=== PATIENT | female | born 1995 | race Two or more races ===

== ENCOUNTER 2016-06-05 19:41 | Outpatient (CLI) | payer MEDICAID ==
--- NOTE | 2016-06-05 20:01 | L&D Flow Sheet ---
LD Flowsheet Datetime Report Generated by CPN: 06/05/2016 20:00 Datetime: 06/05/2016 19:59 Vital Signs NBP Sys/Criselda/Mean (mmHg): 113 (QS system process) : 62 (QS system process) : 80 (QS system process) Pulse: 116 (QS system process)
[2016-06-05 20:22] LABS: APPEARANCE,URINE SLIGHTLY-CLOUDY; BILIRUBIN,URINE NEGATIVE (NEGATIVE); GLUCOSE, URINE NEGATIVE (NEGATIVE); KETONES,URINE NEGATIVE (NEGATIVE); LEUKOCYTE ESTERASE,URINE LARGE (NEGATIVE); NITRITE,URINE NEGATIVE (NEGATIVE); PROTEIN,URINE NEGATIVE (NEGATIVE); URINE SPECIFIC GRAVITY 1.009; UROBILINOGEN,URINE NEGATIVE mg/dL (<2.0)
[2016-06-05 20:33] LABS: URINE BARBITURATES SCREEN NEGATIVE; URINE METHADONE SCREEN NEGATIVE; URINE OPIATES LOW NEGATIVE; URINE PHENCYCLIDINE SCREEN NEGATIVE
[2016-06-05] MEDS ORDERED: LIDOCAINE 1% INJ-PF (10 MG/ML) 30 ML SDV INJ ONE (20:41)
[2016-06-05] MEDS ORDERED: LIDOCAINE 1% INJ-PF (10 MG/ML) 30 ML SDV ONE (20:58)
[2016-06-05] MEDS ORDERED: CEFTRIAXONE INJ 1000 MG VIAL ONE (20:58)
[2016-06-05] MEDS ORDERED: CEFTRIAXONE INJ 1000 MG VIAL IM ONE (21:00)
[2016-06-05] MEDS ORDERED: LIDOCAINE HCL 1% INJ (FOR 1 GM VIAL) INJ ONE (21:00)
[2016-06-05 21:34] LABS: ABSOLUTE LYMPHOCYTES (AUTO) 0.8 10^3/uL (0.5-4.7); ABSOLUTE MONOCYTES (AUTO) 0.8 10^3/uL (0.1-1.4); ABSOLUTE NEUT (AUTO) 10.2 10^3/uL (1.7-8.2); BASOPHILS % (AUTO) 0.1 % (0-2); EOSINOPHILS % (AUTO) 0.1 % (0-6); HEMATOCRIT 31.8 % (36.0-47.0); HEMOGLOBIN 10.7 g/dL (12.0-15.5); HGB HCT DIFFERENCE 0.3; LYMPHOCYTES % (AUTO) 7.1 % (13-45); MEAN CORPUSCULAR HEMOGLOBIN 24.7 pg (27.0-33.4); MEAN CORPUSCULAR HGB CONC 33.7 g/dL (32.0-36.0); MEAN CORPUSCULAR VOLUME 73 fl (80-97); MONOCYTES % (AUTO) 6.5 % (3-13); RED BLOOD COUNT 4.34 10^6/uL (3.72-5.28); RED CELL DISTRIBUTION WIDTH 20.4 % (11.5-14.0); SEGMENTED NEUTROPHILS % (AUTO) 86.2 % (42-78); WHITE BLOOD COUNT 11.8 10^3/uL (4.0-10.5)
[2016-06-05 21:52] LABS: ALANINE AMINOTRANSFERASE 38 U/L (9-52); ALBUMIN 3.1 g/dL (3.5-5.0); ALKALINE PHOSPHATASE 170 U/L (38-126); ANION GAP 8 (5-19); ASPARTATE AMINO TRANSFERASE 21 U/L (14-36); BILIRUBIN,DIRECT 0.3 mg/dL (0.0-0.4); BILIRUBIN,TOTAL 0.8 mg/dL (0.2-1.3); BLOOD UREA NITROGEN 5 mg/dL (7-20); CARBON DIOXIDE 19 mmol/L (22-30); CHLORIDE 108 mmol/L (98-107); CREATININE RESULT 0.59 mg/dL (0.52-1.25); GLUCOSE 81 mg/dL (75-110); POTASSIUM 3.5 mmol/L (3.6-5.0); SODIUM 135.4 mmol/L (137-145); TOTAL PROTEIN 5.9 g/dL (6.3-8.2)
[2016-06-05] MEDS ORDERED: HYDROXYZINE PAMOATE 50 MG CAPSULE ONE (22:03)
[2016-06-05] MEDS ORDERED: ACETAMINOPHEN 325 MG TABLET ONE (22:04)
[2016-06-05] MEDS ORDERED: ACETAMINOPHEN 325 MG TABLET PO ONE (22:15)
[2016-06-05] MEDS ORDERED: HYDROXYZINE PAMOATE 50 MG CAPSULE PO ONE (22:15)
--- NOTE | 2016-06-05 22:50 | L&D Discharge Summary ---
OB Discharge Summary Datetime Report Generated by CPN: 06/05/2016 22:45 DISCHARGE DIAGNOSIS Diagnosis/Symptoms: False Labor; UTI Gestation: 33.2 Number of Babies in Womb: 1 Parity: 0 DIET/ACTIVITY/RESTRICTIONS Diet: Regular Activity: Normal Activity TEACHING/INSTRUCTIONS/REFERRALS Instructions Given To: Patient and family Instructions Understood: Patient Verbalized Understanding; Support Person Verbalized Understanding Referrals: None Educational Materials- Other: Kick Counts OTC Medications DISCHARGE INFORMATION Discharged AMA: No Discharge Date/Time: 06/05/2016 22:21 Discharged To: Home Discharge Provider Name: Dr. Pack Accompanied By: Family Discharge Method: Wheelchair Condition: Stable FOLLOW UP INFORMATION Follow Up With: [facility] Follow Up On: As Scheduled Follow Up Phone Number: [employer] - Comments: Discussed kick counts, OTC medications, and signs and symptoms of when to return to office or hospital with patient and family. All, patient and family, verbalized understanding. Patient discharged home due to false labor via wheelchair in stable condition. GENERAL INSTR-CALL PROVIDER IF: Contractions: Contractions or cramps become more frequent than 8 in one hour or 4 in 20 minutes; Regular painful contractions every 5 minutes or less for one hour. Time your contractions from the beginning of one to the beginning of the next Pressure: Pressure in your vagina or lower abdomen that may feel like the baby is pushing down Period Like Cramps: Period-like cramps or low dull backache that may come and go Cramps/Diarrhea: Abdominal cramps that may be accompanied by diarrhea Gush of Fluid/Blood: Gush of fluid or blood from your vagina (it is normal to have spotting after vaginal exam or intercourse) Vaginal Discharge: Change in the type or amount of vaginal discharge Decreased Movement: Your baby is not moving as much as usual- 4 movements in 1 hour after drinking and resting on side Temperature: Temperature greater than 100.0(F) orally
--- NOTE | 2016-06-05 22:50 | L&D Current Admission ---
Current Admit Datetime Report Generated by CPN: 06/05/2016 22:45 ADMISSION INFORMATION Chief Complaint: Flank Pain (06/05/2016 20:05:Mindy Triplett, RN)
--- NOTE | 2016-06-05 22:50 | Antepartum Discharge Summary ---
Antepartum DC Datetime Report Generated by CPN: 06/05/2016 22:45 DIET/ACTIVITY/RESTRICTIONS Diet: Regular (06/05/2016 22:22:Mindy , RN) Activity: Normal Activity (06/05/2016 22:22:Mindy Field, RN) TEACHING/INSTRUCTIONS/REFERRALS Instructions Given To: Patient and family (06/05/2016 22:22:Mindy , RN) Instructions Understood: Patient Verbalized Understanding; Support Person Verbalized Understanding (06/05/2016 22:22:Mindy Triplett RN) Referrals: None (06/05/2016 22:22:Mindy Triplett RN) Educational Materials- Other: Kick Counts OTC Medications (06/05/2016:22:Mindy Triplett RN) DISCHARGE INFORMATION Discharged AMA: No (06/05/2016 22:22:Mindy Triplett RN) Discharge Date/Time: 06/05/2016 22:21 (06/05/2016 22:22:Mindy Triplett RN) Discharged To: Home (06/05/2016 22:22:Mindy Triplett RN) Discharge Provider Name: Dr. Pack (06/05/2016 22:22:Mindy Triplett RN) Accompanied By: Family (06/05/2016 22:22:Mindy Triplett RN) Discharge Method: Wheelchair (06/05/2016 22:22:Mindy Triplett RN) Condition: Stable (06/05/2016 22:22:Mindy Triplett RN) FOLLOW UP INFORMATION Follow Up With: [facility] (06/05/2016 22:22:Mindy Triplett RN) Follow Up On: As Scheduled (06/05/2016 22:22:Mindy Triplett RN) Follow Up Phone Number: [facility] - (06/05/2016 22:22:Mindy Triplett RN) Comments: Discussed kick counts, OTC medications, and signs and symptoms of when to return to office or hospital with patient and family. All, patient and family, verbalized understanding. Patient discharged home due to false labor via wheelchair in stable condition. (06/05/2016 22:22:Mindy Trilpett RN) GENERAL INSTR-CALL PROVIDER IF: Contractions: Contractions or cramps become more frequent than 8 in one hour or 4 in 20 minutes; Regular painful contractions every 5 minutes or less for one hour. Time your contractions from the beginning of one to the beginning of the next (06/05/2016 22:22:Mindy Triplett RN) Pressure: Pressure in your vagina or lower abdomen that may feel like the baby is pushing down (06/05/2016 22:22:Mindy Triplett RN) Period Like Cramps: Period-like cramps or low dull backache that may come and go (06/05/2016 22:22:Mindy Triplett RN) Cramps/Diarrhea: Abdominal cramps that may be accompanied by diarrhea (06/05/2016 22:22:Mindy Triplett RN) Gush of Fluid/Blood: Gush of fluid or blood from your vagina (it is normal to have spotting after vaginal exam or intercourse) (06/05/2016 22:22:Mindy Triplett RN) Vaginal Discharge: Change in the type or amount of vaginal discharge (06/05/2016 22:22:Mindy Triplett RN) Decreased Movement: Your baby is not moving as much as usual- 4 movements in 1 hour after drinking and resting on side (06/05/2016 22:22:Mindy Triplett RN) Temperature: Temperature greater than 100.0(F) orally (06/05/2016 22:22:Mindy Triplett RN) Hypertension Signs/Symptoms: Severe headache which is not relieved 30 minutes after taking Tylenol(Acetaminophen); Blurry vision or spots before your eyes; Severe heartburn or pain on the upper right side of your abdomen that is not relieved by an antacid; Increased swelling in your face, hands or feet (06/05/2016 22:22:Mindy Triplett RN) Urinary Output: Decreased urinary output or dark colored urine (06/05/2016 22:22:Mindy Triplett RN)
--- NOTE | 2016-06-05 22:50 | L&D Flow Sheet ---
LD Flowsheet Datetime Report Generated by CPN: 06/05/2016 22:45 Datetime: 06/05/2016 22:03 Patient Care Patient Care Comments: Hot pack provided (Mindy Field, RN) Patient Care Patient Care Comments: Discussed Kick counts and OTC medications with patient and family; All verbalized understanding. (Mindy Triplett, RN) Datetime: 06/05/2016 22:00 Communication Communication: RN Reviewed Strip; Provider Orders Received; Call/Page Placed to Provider (Mindy Triplett RN) Communication Comments: Asked Dr. Pack if patient could have something for pain; orders received for Vistaril 50 mg and Tylenol 650 mg PO now (Mindy Triplett RN) Datetime: 06/05/2016 21:57 Communication Communication: RN Reviewed Strip; Provider Orders Received; Call/Page Placed to Provider (Mindy Triplett, RN) Communication Comments: Informed Dr. Ramone of results from Cervical Length, U/S of Appendix, CBC and CMP; orders received to discharge patient home. ([place] Triplett, RN) Datetime: 06/05/2016 21:52 Vital Signs NBP Sys/Criselda/Mean (mmHg): 178 (QS system process) : 86 (QS system process) : 110 (QS system process) Pulse: 126 (QS system process) Datetime: 06/05/2016 21:49 Patient Care Patient Care Comments: Warm blankets provided; patient shaking (Mindy Field, RN) Datetime: 06/05/2016 21:35 Monitor Interventions for FHR: Ultrasound Adjusted (Mindy Field, RN) Comments: RN at bedside adjusting ultrasound (Mindy Field, RN) Datetime: 06/05/2016 21:30 Uterine Activity Monitor Mode: External; Palpation (Mindy Field, RN) Resting Tone (Palpate): Relaxed (Mindy Field, RN) Contraction Comments: No contractions noted on strip (Mindy Field, RN) Assessment A Monitor Mode: External US (Mindy Field, RN) FHR Baseline Rate : 145 (Mindy Field, RN) Variability: Moderate 6-25 bpm (Mindy Field, RN) Accelerations: None (Mindy Field, RN) Decelerations: None (Mindy Field, RN) Datetime: 06/05/2016 21:20 Vital Signs NBP Sys/Criselda/Mean (mmHg): 104 (QS system process) : 57 (QS system process) : 71 (QS system process) Pulse: 105 (QS system process) Datetime: 06/05/2016 21:10 Medications Medication Comments: Rocephin 1000 mg IM with Lidocaine 2.1 mL (Mindy Field, RN) Patient Care Patient Care Comments: Patient returned to floor from Ultra sound (Mindy Field, RN) Datetime: 06/05/2016 20:44 Uterine Activity Monitor Mode: External; Palpation (Mindy Field, RN) Resting Tone (Palpate): Relaxed (Mindy Field, RN) Contraction Comments: No contractions noted on strip (Mindy Field, RN) Assessment A Monitor Mode: External US (Mindy Field, RN) FHR Baseline Rate : 150 (Mindy Field, RN) Variability: Moderate 6-25 bpm (Mindy Field, RN) Accelerations: 10X10 (Mindy Field, RN) Decelerations: Variable (Mindy Field, RN) Patient Care Patient Care Comments: Patient off monitor and floor to ultra sound (Mindy Field, RN) Datetime: 06/05/2016 20:34 Communication Communication: RN Reviewed Strip; Provider Orders Received; Call/Page Placed to Provider (Mindy Triplett RN) Communication Comments: Informed Dr. Pack of patient's complaint, history, urine results, and FHR/Contractions; orders received for U/S for Cervical Length and Appendix, CBC, CMP and Rocephin 1 g IM (Mindy Tripltet, PASCUAL) Datetime: 06/05/2016 20:30 Vital Signs NBP Sys/Criselda/Mean (mmHg): 121 (QS system process) : 67 (QS system process) : 88 (QS system process) Pulse: 127 (QS system process) Uterine Activity Monitor Mode: External; Palpation (Mindy Field, RN) Frequency (min): 2 (Mindy Field, RN) Quality: Mild (Mindy Field, RN) Duration (sec): 40-50 (Mindy Field, RN) Resting Tone (Palpate): Relaxed (Mindy Field, RN) Assessment A Monitor Mode: External US (Mindy Field, RN) FHR Baseline Rate : 150 (Mindy , RN) Variability: Moderate 6-25 bpm (Mindy , RN) Accelerations: 15X15 (Mindy Triplett, RN) Decelerations: Variable [facility] Datetime: 06/05/2016 20:05 Pain Pain Scale: 4 (Mindy Triplett, PASCUAL) Pain Presence: Constant (Mindy Triplett RN) Pain Type: Sharp; Stabbing; Pressure; Ache (Mindy Triplett, RN) Pain Location: Right Flank (Mindy Triplett, RN) Pain Goal: 0 (Mindy Triplett RN) Pain Relief Measures: Comfort Measures (Mindy Triplett RN) Pain Coping: Talking Through Contractions; Breathing Through Contractions (Mindy Triplett RN) Pain Assessment Comments: Patient took 1/2 of 200 mg Ibuprofen at 1900 (Mindy , RN) Vaginal Exam Vaginal Bleeding: None (Mindy Field, RN) Maternal Assessment Level of Consciousness: Fully Conscious (Mindy Field, RN) DTR's/Clonus: DTRs 1+; No Clonus (Mindy Field, RN) Headache: Denies (Mindy Field, RN) Breath Sounds, Left: Clear and Equal (Mindy Field, RN) Breath Sounds, Right: Clear and Equal (Mindy Field, RN) Nausea/Vomiting: Present (Mindy Field, RN) RUQ Epigastric Pain: Denies (Mindy Field, RN) Teaching Instructional Method: Verbal; Patient Instructed; Family/Support Person Instructed; Verbalized Understanding (Mindy Field, RN) Plan of Care: Plan of Care Discussed (Mindy Triplett RN) Unit Routine: [place] to Room; Call Blanca; Bed; Visiting Policy; Waiting Areas; Security; Phone/Cell Phone Use; Unit Personnel; Handwashing; Monitoring; Safety/Fall Risk Prevention; Bathroom Privileges (Mindy Triplett RN) Datetime: 06/05/2016 19:59 Vital Signs NBP Sys/Criselda/Mean (mmHg): 113 (QS system process) : 62 (QS system process) : 80 (QS system process) Pulse: 116 (QS system process)
--- NOTE | 2016-06-05 22:50 | L&D General Admission ---
General Admit Datetime Report Generated by CPN: 06/05/2016 22:45 INFORMATION Patient Age: 20 (06/05/2016 19:41:QS system process) EDC: 07/22/2016 00:00 (06/05/2016 19:44:Crystal [place], RN) : 1 (06/05/2016 19:44:Crystal Robbie, RN) Para: 0 (06/05/2016 19:44:Crystal Robbie, RN) Baby, Number in Womb: 1 (06/05/2016 19:44:Mindy Triplett RN) CARE Primary Kitchen Work Supervisor: [facility] (06/05/2016 19:44:Mindy Triplett RN) Adequate Care: Yes (06/05/2016 19:44:Mindy Triplett RN) Height (in): 63 (06/05/2016 20:38:QS system process) ALLERGIES Medication Allergy: No (06/05/2016 19:44:Mindy Triplett RN) Medication Allergies: No Known Allergies (01/20/2015) (06/05/2016 19:41:QS system process) Latex Allergy: No Latex Allergies (06/05/2016 19:44:Mindy Triplett RN) Food Allergies: N/A (06/05/2016 19:44:Mindy Triplett RN) Environmental Allergies: N/a (06/05/2016 19:44:Mindy Triplett RN) COMMUNICATION Primary Language: Yoruba (06/05/2016 19:44:Mindy Triplett RN) Medical Tx Preferred Language: Yoruba (06/05/2016 19:44:Mindy Triplett RN) Communication Barrier(s): None (06/05/2016 19:44:Mindy Triplett RN) DEMOGRAPHICS Address: [address] [place] [id number] (06/05/2016 19:41:QS system process) Zipcode: [phone] (06/05/2016 19:41:QS system process) Home (06/05/2016 19:41:QS system process) SSN: [id number] (06/05/2016 19:41:QS system process) Next of Kin Name: MAGNOLIA BETH (06/05/2016 19:41:QS system process) Next of Kin (06/05/2016 19:41:QS system process) Next of Kin Relationship: MO (06/05/2016 19:41:QS system process) Date of : 1995 (06/05/2016 19:41:QS system process) Marital Status: Single (06/05/2016 19:41:QS system process) Sex: Female (06/05/2016 19:41:QS system process) Race: Other (06/05/2016 19:41:QS system process) Ethnicity: Non- or (06/05/2016 19:41:QS system process) Orthodoxy: None (06/05/2016 19:41:QS system process) FOB Involved: Yes (06/05/2016 19:44:Mindy Triplett RN) Father of Baby Name: Zhao Kearns (06/05/2016 19:44:Mindy Triplett RN) DRUG AND ALCOHOL USE Alcohol: No (06/05/2016 19:44:Mindy Triplett RN) Cigarettes: Never Smoker. [id number] (06/05/2016 19:44:Mindy Triplett RN) Marijuana: No (06/05/2016 19:44:Mindy Triplett RN) Cocaine: No (06/05/2016 19:44:Mindy Triplett RN) Other Illicit Drugs: No (06/05/2016 19:44:Mindy Triplett RN) VACCINE HISTORY Influenza Vaccine: No (06/05/2016 19:44:Mindy Triplett RN) Pneumococcal Vaccine: No (06/05/2016 19:44:Mindy Triplett RN) Tetanus Vaccine: No (06/05/2016 19:44:Mindy Triplett RN) Tdap Vaccine: No (06/05/2016 19:44:Mindy Triplett RN) Hepatitis B Vaccine: Yes (06/05/2016 19:44:Mindy Triplett RN) Feeding Preference: Both (06/05/2016 19:44:Mindy Triplett RN) Benefit of Breast Feed Discussed: Yes (06/05/2016 19:44:Mindy Triplett RN) Circumcision: Yes (06/05/2016 19:44:Mindy Triplett RN) Tubal Ligation: No (06/05/2016 19:44:Mindy Triplett RN) Tubal Authorization Signed: N/A (06/05/2016 19:44:Mindy Triplett RN) Consent: N/A (06/05/2016 19:44:Mindy Triplett RN) Consent Signed: N/A (06/05/2016 19:44:Mindy Triplett RN) Pain Management Plans: Epidural (06/05/2016 19:44:Mindy Triplett RN) Plans for Labor and Delivery: None (06/05/2016 19:44:Mindy Triplett RN) Support Person: Zhao Kearns (06/05/2016 19:44:Mindy Triplett RN) Support Person Relationship: Significant Other (06/05/2016 19:44:Mindy Triplett RN) Cultural/Spritual Practice: No (06/05/2016 19:44:Mindy Triplett RN) Spir/Cult Dietary Needs: No (06/05/2016 19:44:Mindy Triplett RN) LIVING SITUATION/DISCHARGE PLAN Living Arrangements: House (06/05/2016 19:44:Mindy Triplett RN) Adequate Access to:: Electric; Heat; Refrigeration; Plumbing/Running water; Phone; Transportation (06/05/2016 19:44:Mindy Triplett RN) WIC Program: Yes (06/05/2016 19:44:Mindy Triplett RN) Discharge Paper Steamer Person: Zhao Kearns (06/05/2016 19:44:Mindy Triplett RN) Person to Help after Discharge: Zhao Kearns (06/05/2016 19:44:Mindy Triplett RN) Currently Using Commun Resources: No (06/05/2016 19:44:Mindy Triplett RN) Outside Agency/Sales Promotion Director: No (06/05/2016 19:44:Mindy Triplett RN) Car Seat for Discharge: Yes (06/05/2016 19:44:Mindy Triplett RN) Adoption Requested: No (06/05/2016 19:44:Mindy Triplett RN) Pt Contact w/ Post : N/A (06/05/2016 19:44:Mindy Triplett RN) LABS Blood Type: O Positive (06/05/2016 19:44:Mindy Triplett RN) Antibody Screen: negative (06/05/2016 19:44:Mindy Triplett RN) Hemoglobin: 10.7 L (06/05/2016 21:28:QS system process) Hematocrit: 31.8 L (06/05/2016 21:28:QS system process) MCV: 73 L (06/05/2016 21:28:QS system process) Gonorrhea: Negative (06/05/2016 19:44:Mindy Triplett RN) Chlamydia: Negative (06/05/2016 19:44:Mindy Triplett RN) RPR/VDRL: Nonreactive (06/05/2016 19:44:Mindy Triplett RN) HIV Exposure Test: Negative (06/05/2016 19:44:Mindy Triplett RN) Hepatitis B: Negative (06/05/2016 19:44:Mindy Triplett RN) Rubella: Immune (06/05/2016 19:44:Mindy Triplett RN) Varicella: Non Susceptible (06/05/2016 19:44:Mindy Triplett RN) OB/PREVIOUS HISTORY Current Procedures: Ultrasound (06/05/2016 19:44:Mindy Triplett RN) History of Previous : No (06/05/2016 19:44:Mindy Triplett RN) History of Gestational Diabetes: No (06/05/2016 19:44:Mindy Triplett RN) History of PIH: No (06/05/2016 19:44:Mindy Triplett RN) History of Incompetent Cervix: No (06/05/2016 19:44:Mindy Triplett RN) History of Placenta Previa/Abrup: No (06/05/2016 19:44:Mindy Triplett RN) History of Macrosomia: No (06/05/2016 19:44:Mindy Field, RN) History of IUGR: No (06/05/2016 19:44:Mindy Triplett RN) History of Hemorrhage: No (06/05/2016 19:44:Mindy Triplett RN) History of Loss/Stillborn: No (06/05/2016 19:44:Mindy Triplett RN) History of : No (06/05/2016 19:44:Mindy Triplett RN) History of D (Rh) Sensitization: No (06/05/2016 19:44:Mindy Triplett RN) History Recurrent Loss/Stillborn: No (06/05/2016 19:44:Mindy Triplett RN) History Depression/PP Depression: Yes (06/05/2016 19:44:Mindy Triplett RN) History of Uterine Anomaly/KRISTAL: No (06/05/2016 19:44:Mindy Triplett RN) History of Infertility: No (06/05/2016 19:44:Mindy Triplett RN) History of ART Treatment: No (06/05/2016 19:44:Mindy Triplett RN) History of KRISTAL: No (06/05/2016 19:44:Mindy Triplett RN) Comments Obstetrical History: G1 - Current (06/05/2016 19:44:Mindy Triplett RN) MEDICAL HISTORY Med Hx Diabetes: Yes (06/05/2016 19:44:Mindy Triplett RN) Diabetes Type: Gestational Diabetes (06/05/2016 19:44:Mindy Triplett RN) Med Hx Hypertension: No (06/05/2016 19:44:Mindy Triplett RN) Med Hx Heart Disease: No (06/05/2016 19:44:Mindy Triplett RN) Med Hx Autoimmune Disorder: No (06/05/2016 19:44:Mindy Triplett RN) Med Hx Kidney Disease/UTI: No (06/05/2016 19:44:Mindy Triplett RN) Med Hx Neurologic/Epilepsy: No (06/05/2016 19:44:Mindy Triplett RN) Med Hx Psychiatric Disorders: No (06/05/2016 19:44:Mindy Triplett RN) Med Hx Hepatitis/Liver Disease: No (06/05/2016 19:44:Mindy Triplett RN) Med Hx Varicosities/Phlebitis: No (06/05/2016 19:44:Mindy Triplett RN) Med Hx Thyroid Dysfunction: No (06/05/2016 19:44:Mindy Triplett RN) Med Hx Trauma/Violence: No (06/05/2016 19:44:Mindy Triplett RN) Med Hx Blood Transfusion: No (06/05/2016 19:44:Mindy Triplett RN) Med Hx Pulmonary (Asthma,TB): No (06/05/2016 19:44:Mindy Triplett RN) Med Hx Breast: No (06/05/2016 19:44:Mindy Triplett RN) Med Hx DINING ROOM SERVER Surgery: No (06/05/2016 19:44:Mindy Triplett RN) Med Hx Hospitalization/Surgery: No (06/05/2016 19:44:Mindy Triplett RN) Med Hx Anesthetic Complications: No (06/05/2016 19:44:Mindy Triplett RN) Med Hx Abnormal Pap Smear: No (06/05/2016 19:44:Mindy Triplett RN) Other Medical Diseases: No (06/05/2016 19:44:Mindy Triplett RN) Med Hx Significant Family Hx: No (06/05/2016 19:44:Mindy Triplett RN) Details of Med/Surg Hx: Depression, anxiety, sickle cell trait (06/05/2016 19:44:Mindy Triplett RN) INFECTIOUS HISTORY Inf Hx Gonorrhea: No (06/05/2016 19:44:Mindy Triplett RN) Inf Hx Chlamydia: No (06/05/2016 19:44:Mindy Triplett RN) Inf Hx Syphilis: No (06/05/2016 19:44:Mindy Triplett RN) Inf Hx HIV/AIDS: No (06/05/2016 19:44:Mindy Triplett RN) Inf Hx Human Papilloma Virus: No (06/05/2016 19:44:Mindy Triplett RN) Inf Hx Pt/Partner Genital Herpes: No (06/05/2016 19:44:Mindy Triplett RN) Inf Hx Tuberculosis/Exposure: No (06/05/2016 19:44:Mindy Triplett RN) Inf Hx Hepatitis B,C: No (06/05/2016 19:44:Mindy Triplett RN) Inf Hx Rash or Viral Illness: No (06/05/2016 19:44:Mindy Triplett RN) GENETIC HISTORY Gen Hx Age >=35 at NANCY: No (06/05/2016 19:44:Mindy Triplett RN) Gen Hx Thalassemia: No (06/05/2016 19:44:Mindy Triplett RN) Gen Hx Congenital Heart Defect: No (06/05/2016 19:44:Mindy Triplett RN) Gen Hx Neural Tube Defect: No (06/05/2016 19:44:Mindy Triplett RN) Gen Hx Down's Syndrome: No (06/05/2016 19:44:Mindy Triplett RN) Gen Hx Elijah-Sachs: No (06/05/2016 19:44:Mindy Triplett RN) Gen Hx Boni: No (06/05/2016 19:44:Mindy Triplett RN) Gen Hx Familial Dysautonomia: No (06/05/2016 19:44:Mindy Triplett RN) Gen Hx Sickle Cell Disease/Trait: Yes (06/05/2016 19:44:Mindy Triplett RN) Gen Hx Hemophilia/Blood Disorder: No (06/05/2016 19:44:Mindy Triplett RN) Gen Hx Muscular Dystrophy: No (06/05/2016 19:44:Mindy Triplett RN) Gen Hx Cystic Fibrosis: No (06/05/2016 19:44:Mindy Triplett RN) Gen Hx Huntingtons Chorea: No (06/05/2016 19:44:Mindy Triplett RN) Gen Hx Mental Retardation/Autism: No (06/05/2016 19:44:Mindy Triplett RN) Gen Hx Tested for Fragile X: No (06/05/2016 19:44:Mindy Triplett RN) Gen Hx Other Inher/Chromosomal: No (06/05/2016 19:44:Mindy Triplett RN) Gen Hx Maternal Metabolic DO: No (06/05/2016 19:44:Mindy Triplett RN) Gen Hx Pt Father or FOB Defect: No (06/05/2016 19:44:Mindy Triplett RN) Gen Hx Other Genetic History: No (06/05/2016 19:44:Mindy Triplett RN) Gen Hx Drugs/Meds since LMP: Yes (06/05/2016 19:44:Mindy Triplett RN) Gen Hx Medications: vitamins (06/05/2016 19:44:Mindy Triplett RN) Details of Genetic History: FOB - Grandmother MS (06/05/2016 19:44:Mindy Triplett RN)
--- NOTE | 2016-06-06 00:23 | L&D Discharge Summary ---
OB Discharge Summary Datetime Report Generated by CPN: 06/06/2016 00:22 DISCHARGE DIAGNOSIS Diagnosis/Symptoms: False Labor; UTI Gestation: 33.2 Number of Babies in Womb: 1 Parity: 0 DIET/ACTIVITY/RESTRICTIONS Diet: Regular Activity: Normal Activity TEACHING/INSTRUCTIONS/REFERRALS Instructions Given To: Patient and family Instructions Understood: Patient Verbalized Understanding; Support Person Verbalized Understanding Referrals: None Educational Materials- Other: Kick Counts OTC Medications DISCHARGE INFORMATION Discharged AMA: No Discharge Date/Time: 06/05/2016 22:21 Discharged To: Home Discharge Provider Name: Dr. Pack Accompanied By: Family Discharge Method: Wheelchair Condition: Stable FOLLOW UP INFORMATION Follow Up With: [facility] Follow Up On: As Scheduled Follow Up Phone Number: [employer] - Comments: Discussed kick counts, OTC medications, and signs and symptoms of when to return to office or hospital with patient and family. All, patient and family, verbalized understanding. Patient discharged home due to false labor via wheelchair in stable condition. GENERAL INSTR-CALL PROVIDER IF: Contractions: Contractions or cramps become more frequent than 8 in one hour or 4 in 20 minutes; Regular painful contractions every 5 minutes or less for one hour. Time your contractions from the beginning of one to the beginning of the next Pressure: Pressure in your vagina or lower abdomen that may feel like the baby is pushing down Period Like Cramps: Period-like cramps or low dull backache that may come and go Cramps/Diarrhea: Abdominal cramps that may be accompanied by diarrhea Gush of Fluid/Blood: Gush of fluid or blood from your vagina (it is normal to have spotting after vaginal exam or intercourse) Vaginal Discharge: Change in the type or amount of vaginal discharge Decreased Movement: Your baby is not moving as much as usual- 4 movements in 1 hour after drinking and resting on side Temperature: Temperature greater than 100.0(F) orally
--- NOTE | 2016-06-06 04:50 | Antepartum Discharge Summary ---
Antepartum DC Datetime Report Generated by CPN: 06/06/2016 04:46 DIET/ACTIVITY/RESTRICTIONS Diet: Regular (06/05/2016 22:22:Mindy , RN) Activity: Normal Activity (06/05/2016 22:22:Mindy Field, RN) TEACHING/INSTRUCTIONS/REFERRALS Instructions Given To: Patient and family (06/05/2016 22:22:Mindy , RN) Instructions Understood: Patient Verbalized Understanding; Support Person Verbalized Understanding (06/05/2016 22:22:Mindy Triplett RN) Referrals: None (06/05/2016 22:22:Mindy Triplett RN) Educational Materials- Other: Kick Counts OTC Medications (06/05/2016:22:Mindy Triplett RN) DISCHARGE INFORMATION Discharged AMA: No (06/05/2016 22:22:Mindy Triplett RN) Discharge Date/Time: 06/05/2016 22:21 (06/05/2016 22:22:Mindy Triplett RN) Discharged To: Home (06/05/2016 22:22:Mindy Triplett RN) Discharge Provider Name: Dr. Pack (06/05/2016 22:22:Mindy Triplett RN) Accompanied By: Family (06/05/2016 22:22:Mindy Triplett RN) Discharge Method: Wheelchair (06/05/2016 22:22:Mindy Triplett RN) Condition: Stable (06/05/2016 22:22:Mindy Triplett RN) FOLLOW UP INFORMATION Follow Up With: [facility] (06/05/2016 22:22:Mindy Triplett RN) Follow Up On: As Scheduled (06/05/2016 22:22:Mindy Triplett RN) Follow Up Phone Number: [facility] - (06/05/2016 22:22:Mindy Triplett RN) Comments: Discussed kick counts, OTC medications, and signs and symptoms of when to return to office or hospital with patient and family. All, patient and family, verbalized understanding. Patient discharged home due to false labor via wheelchair in stable condition. (06/05/2016 22:22:Mindy Triplett RN) GENERAL INSTR-CALL PROVIDER IF: Contractions: Contractions or cramps become more frequent than 8 in one hour or 4 in 20 minutes; Regular painful contractions every 5 minutes or less for one hour. Time your contractions from the beginning of one to the beginning of the next (06/05/2016 22:22:Mindy Triplett RN) Pressure: Pressure in your vagina or lower abdomen that may feel like the baby is pushing down (06/05/2016 22:22:Mindy Triplett RN) Period Like Cramps: Period-like cramps or low dull backache that may come and go (06/05/2016 22:22:Mindy Triplett RN) Cramps/Diarrhea: Abdominal cramps that may be accompanied by diarrhea (06/05/2016 22:22:Mindy Triplett RN) Gush of Fluid/Blood: Gush of fluid or blood from your vagina (it is normal to have spotting after vaginal exam or intercourse) (06/05/2016 22:22:Mindy Triplett RN) Vaginal Discharge: Change in the type or amount of vaginal discharge (06/05/2016 22:22:Mindy Triplett RN) Decreased Movement: Your baby is not moving as much as usual- 4 movements in 1 hour after drinking and resting on side (06/05/2016 22:22:Mindy Triplett RN) Temperature: Temperature greater than 100.0(F) orally (06/05/2016 22:22:Mindy Triplett RN) Hypertension Signs/Symptoms: Severe headache which is not relieved 30 minutes after taking Tylenol(Acetaminophen); Blurry vision or spots before your eyes; Severe heartburn or pain on the upper right side of your abdomen that is not relieved by an antacid; Increased swelling in your face, hands or feet (06/05/2016 22:22:Mindy Triplett RN) Urinary Output: Decreased urinary output or dark colored urine (06/05/2016 22:22:Mindy Trpilett RN)
--- NOTE | 2016-06-06 04:50 | L&D Discharge Summary ---
OB Discharge Summary Datetime Report Generated by CPN: 06/06/2016 04:46 DISCHARGE DIAGNOSIS Diagnosis/Symptoms: False Labor; UTI Gestation: 33.2 Number of Babies in Womb: 1 Parity: 0 DIET/ACTIVITY/RESTRICTIONS Diet: Regular Activity: Normal Activity TEACHING/INSTRUCTIONS/REFERRALS Instructions Given To: Patient and family Instructions Understood: Patient Verbalized Understanding; Support Person Verbalized Understanding Referrals: None Educational Materials- Other: Kick Counts OTC Medications DISCHARGE INFORMATION Discharged AMA: No Discharge Date/Time: 06/05/2016 22:21 Discharged To: Home Discharge Provider Name: Dr. Pack Accompanied By: Family Discharge Method: Wheelchair Condition: Stable FOLLOW UP INFORMATION Follow Up With: [facility] Follow Up On: As Scheduled Follow Up Phone Number: [facility] - Comments: Discussed kick counts, OTC medications, and signs and symptoms of when to return to office or hospital with patient and family. All, patient and family, verbalized understanding. Patient discharged home due to false labor via wheelchair in stable condition. GENERAL INSTR-CALL PROVIDER IF: Contractions: Contractions or cramps become more frequent than 8 in one hour or 4 in 20 minutes; Regular painful contractions every 5 minutes or less for one hour. Time your contractions from the beginning of one to the beginning of the next Pressure: Pressure in your vagina or lower abdomen that may feel like the baby is pushing down Period Like Cramps: Period-like cramps or low dull backache that may come and go Cramps/Diarrhea: Abdominal cramps that may be accompanied by diarrhea Gush of Fluid/Blood: Gush of fluid or blood from your vagina (it is normal to have spotting after vaginal exam or intercourse) Vaginal Discharge: Change in the type or amount of vaginal discharge Decreased Movement: Your baby is not moving as much as usual- 4 movements in 1 hour after drinking and resting on side Temperature: Temperature greater than 100.0(F) orally
--- NOTE | 2016-06-06 04:50 | L&D General Admission ---
General Admit Datetime Report Generated by CPN: 06/06/2016 04:46 INFORMATION Patient Age: 20 (06/05/2016 19:41:QS system process) EDC: 07/22/2016 00:00 (06/05/2016 19:44:Crystal Seagraves, RN) : 1 (06/05/2016 19:44:Crystal Robbie, RN) Para: 0 (06/05/2016 19:44:Crystal Robbie, RN) Baby, Number in Womb: 1 (06/05/2016 19:44:Mindy Triplett RN) CARE Primary Roll Forger: [facility] (06/05/2016 19:44:Mindy Triplett RN) Adequate Care: Yes (06/05/2016 19:44:Mindy Triplett RN) Height (in): 63 (06/05/2016 20:38:QS system process) ALLERGIES Medication Allergy: No (06/05/2016 19:44:Mindy Triplett RN) Medication Allergies: No Known Allergies (01/20/2015) (06/05/2016 19:41:QS system process) Latex Allergy: No Latex Allergies (06/05/2016 19:44:Mindy Triplett RN) Food Allergies: N/A (06/05/2016 19:44:Mindy Triplett RN) Environmental Allergies: N/a (06/05/2016 19:44:Mindy Triplett RN) COMMUNICATION Primary Language: Hebrew (06/05/2016 19:44:Mindy Triplett RN) Medical Tx Preferred Language: Hebrew (06/05/2016 19:44:Mindy Triplett RN) Communication Barrier(s): None (06/05/2016 19:44:Mindy Triplett RN) DEMOGRAPHICS Address: [address] [place] [id number] (06/05/2016 19:41:QS system process) Zipcode: [phone] (06/05/2016 19:41:QS system process) Home (06/05/2016 19:41:QS system process) SSN: [id number] (06/05/2016 19:41:QS system process) Next of Kin Name: MAGNOLIA BETH (06/05/2016 19:41:QS system process) Next of Kin (06/05/2016 19:41:QS system process) Next of Kin Relationship: MO (06/05/2016 19:41:QS system process) Date of : 1995 (06/05/2016 19:41:QS system process) Marital Status: Single (06/05/2016 19:41:QS system process) Sex: Female (06/05/2016 19:41:QS system process) Race: Other (06/05/2016 19:41:QS system process) Ethnicity: Non- or (06/05/2016 19:41:QS system process) Congregation: None (06/05/2016 19:41:QS system process) FOB Involved: Yes (06/05/2016 19:44:Mindy Triplett RN) Father of Baby Name: Zhao Kearns (06/05/2016 19:44:Mindy Triplett RN) DRUG AND ALCOHOL USE Alcohol: No (06/05/2016 19:44:Mindy Triplett RN) Cigarettes: Never Smoker. [id number] (06/05/2016 19:44:Mindy Triplett RN) Marijuana: No (06/05/2016 19:44:Mindy Triplett RN) Cocaine: No (06/05/2016 19:44:Mindy Triplett RN) Other Illicit Drugs: No (06/05/2016 19:44:Mindy Triplett RN) VACCINE HISTORY Influenza Vaccine: No (06/05/2016 19:44:Mindy Triplett RN) Pneumococcal Vaccine: No (06/05/2016 19:44:Mindy Triplett RN) Tetanus Vaccine: No (06/05/2016 19:44:Mnidy Triplett RN) Tdap Vaccine: No (06/05/2016 19:44:Mindy Triplett RN) Hepatitis B Vaccine: Yes (06/05/2016 19:44:Mindy Triplett RN) Feeding Preference: Both (06/05/2016 19:44:Mindy Triplett RN) Benefit of Breast Feed Discussed: Yes (06/05/2016 19:44:Mindy Triplett RN) Circumcision: Yes (06/05/2016 19:44:Mindy Triplett RN) Tubal Ligation: No (06/05/2016 19:44:Mindy Triplett RN) Tubal Authorization Signed: N/A (06/05/2016 19:44:Mindy Triplett RN) Consent: N/A (06/05/2016 19:44:Mindy Triplett RN) Consent Signed: N/A (06/05/2016 19:44:Mindy Triplett RN) Pain Management Plans: Epidural (06/05/2016 19:44:Mindy Triplett RN) Plans for Labor and Delivery: None (06/05/2016 19:44:Mindy Triplett RN) Support Person: Zhao Kearns (06/05/2016 19:44:Mindy Triplett RN) Support Person Relationship: Significant Other (06/05/2016 19:44:Mindy Triplett RN) Cultural/Spritual Practice: No (06/05/2016 19:44:Mindy Triplett RN) Spir/Cult Dietary Needs: No (06/05/2016 19:44:Mindy Triplett RN) LIVING SITUATION/DISCHARGE PLAN Living Arrangements: House (06/05/2016 19:44:Mindy Triplett RN) Adequate Access to:: Electric; Heat; Refrigeration; Plumbing/Running water; Phone; Transportation (06/05/2016 19:44:Mindy Triplett RN) WIC Program: Yes (06/05/2016 19:44:Mindy Triplett RN) Discharge Premix Concrete Batcher Person: Zhao Kearns (06/05/2016 19:44:Mindy Triplett RN) Person to Help after Discharge: Zhao Kearns (06/05/2016 19:44:Mindy Triplett RN) Currently Using Commun Resources: No (06/05/2016 19:44:Mindy Triplett RN) Outside Agency/Ug Designer: No (06/05/2016 19:44:Mindy Triplett RN) Car Seat for Discharge: Yes (06/05/2016 19:44:Mindy Triplett RN) Adoption Requested: No (06/05/2016 19:44:Mindy Triplett RN) Pt Contact w/ Post : N/A (06/05/2016 19:44:Mindy Triplett RN) LABS Blood Type: O Positive (06/05/2016 19:44:Mindy Triplett RN) Antibody Screen: negative (06/05/2016 19:44:Mindy Triplett RN) Hemoglobin: 10.7 L (06/05/2016 21:28:QS system process) Hematocrit: 31.8 L (06/05/2016 21:28:QS system process) MCV: 73 L (06/05/2016 21:28:QS system process) Gonorrhea: Negative (06/05/2016 19:44:Mindy Triplett RN) Chlamydia: Negative (06/05/2016 19:44:Mindy Triplett RN) RPR/VDRL: Nonreactive (06/05/2016 19:44:Mindy Triplett RN) HIV Exposure Test: Negative (06/05/2016 19:44:Mindy Triplett RN) Hepatitis B: Negative (06/05/2016 19:44:Mindy Triplett RN) Rubella: Immune (06/05/2016 19:44:Mindy Triplett RN) Varicella: Non Susceptible (06/05/2016 19:44:Mindy Triplett RN) OB/PREVIOUS HISTORY Current Procedures: Ultrasound (06/05/2016 19:44:Mindy Triplett RN) History of Previous : No (06/05/2016 19:44:Mindy Triplett RN) History of Gestational Diabetes: No (06/05/2016 19:44:Mindy Triplett RN) History of PIH: No (06/05/2016 19:44:Mindy Triplett RN) History of Incompetent Cervix: No (06/05/2016 19:44:Mindy Triplett RN) History of Placenta Previa/Abrup: No (06/05/2016 19:44:Mindy Triplett RN) History of Macrosomia: No (06/05/2016 19:44:Mindy Field, RN) History of IUGR: No (06/05/2016 19:44:Mindy Triplett RN) History of Hemorrhage: No (06/05/2016 19:44:Mindy Triplett RN) History of Loss/Stillborn: No (06/05/2016 19:44:Mindy Triplett RN) History of : No (06/05/2016 19:44:Mindy Triplett RN) History of D (Rh) Sensitization: No (06/05/2016 19:44:Mindy Triplett RN) History Recurrent Loss/Stillborn: No (06/05/2016 19:44:Mindy Triplett RN) History Depression/PP Depression: Yes (06/05/2016 19:44:Mindy Triplett RN) History of Uterine Anomaly/KRISTAL: No (06/05/2016 19:44:Mindy Triplett RN) History of Infertility: No (06/05/2016 19:44:Mindy Triplett RN) History of ART Treatment: No (06/05/2016 19:44:Mindy Triplett RN) History of KRISTAL: No (06/05/2016 19:44:Mindy Triplett RN) Comments Obstetrical History: G1 - Current (06/05/2016 19:44:Mindy Triplett RN) MEDICAL HISTORY Med Hx Diabetes: Yes (06/05/2016 19:44:Mindy Triplett RN) Diabetes Type: Gestational Diabetes (06/05/2016 19:44:Mindy Triplett RN) Med Hx Hypertension: No (06/05/2016 19:44:Mindy Triplett RN) Med Hx Heart Disease: No (06/05/2016 19:44:Mindy Triplett RN) Med Hx Autoimmune Disorder: No (06/05/2016 19:44:Mindy Triplett RN) Med Hx Kidney Disease/UTI: No (06/05/2016 19:44:Mindy Triplett RN) Med Hx Neurologic/Epilepsy: No (06/05/2016 19:44:Mindy Triplett RN) Med Hx Psychiatric Disorders: No (06/05/2016 19:44:Mindy Triplett RN) Med Hx Hepatitis/Liver Disease: No (06/05/2016 19:44:Mindy Triplett RN) Med Hx Varicosities/Phlebitis: No (06/05/2016 19:44:Mindy Triplett RN) Med Hx Thyroid Dysfunction: No (06/05/2016 19:44:Mindy Triplett RN) Med Hx Trauma/Violence: No (06/05/2016 19:44:Mindy Triplett RN) Med Hx Blood Transfusion: No (06/05/2016 19:44:Mindy Triplett RN) Med Hx Pulmonary (Asthma,TB): No (06/05/2016 19:44:Mindy Triplett RN) Med Hx Breast: No (06/05/2016 19:44:Mindy Triplett RN) Med Hx INFECTION PREVENTIONIST Surgery: No (06/05/2016 19:44:Mindy Triplett RN) Med Hx Hospitalization/Surgery: No (06/05/2016 19:44:Mindy Triplett RN) Med Hx Anesthetic Complications: No (06/05/2016 19:44:Mindy Triplett RN) Med Hx Abnormal Pap Smear: No (06/05/2016 19:44:Mindy Triplett RN) Other Medical Diseases: No (06/05/2016 19:44:Mindy Triplett RN) Med Hx Significant Family Hx: No (06/05/2016 19:44:Mindy Triplett RN) Details of Med/Surg Hx: Depression, anxiety, sickle cell trait (06/05/2016 19:44:Mindy Triplett RN) INFECTIOUS HISTORY Inf Hx Gonorrhea: No (06/05/2016 19:44:Mindy Triplett RN) Inf Hx Chlamydia: No (06/05/2016 19:44:Mindy Triplett RN) Inf Hx Syphilis: No (06/05/2016 19:44:Mindy Triplett RN) Inf Hx HIV/AIDS: No (06/05/2016 19:44:Mindy Triplett RN) Inf Hx Human Papilloma Virus: No (06/05/2016 19:44:Mindy Triplett RN) Inf Hx Pt/Partner Genital Herpes: No (06/05/2016 19:44:Mindy Triplett RN) Inf Hx Tuberculosis/Exposure: No (06/05/2016 19:44:Mindy Triplett RN) Inf Hx Hepatitis B,C: No (06/05/2016 19:44:Mindy Trilpett RN) Inf Hx Rash or Viral Illness: No (06/05/2016 19:44:Mindy Triplett RN) GENETIC HISTORY Gen Hx Age >=35 at NANCY: No (06/05/2016 19:44:Mindy Triplett RN) Gen Hx Thalassemia: No (06/05/2016 19:44:Mindy Triplett RN) Gen Hx Congenital Heart Defect: No (06/05/2016 19:44:Mindy Triplett RN) Gen Hx Neural Tube Defect: No (06/05/2016 19:44:Mindy Triplett RN) Gen Hx Down's Syndrome: No (06/05/2016 19:44:Mindy Triplett RN) Gen Hx Elijah-Sachs: No (06/05/2016 19:44:Mindy Triplett RN) Gen Hx Boni: No (06/05/2016 19:44:Mindy Triplett RN) Gen Hx Familial Dysautonomia: No (06/05/2016 19:44:Mindy Triplett RN) Gen Hx Sickle Cell Disease/Trait: Yes (06/05/2016 19:44:Mindy Triplett RN) Gen Hx Hemophilia/Blood Disorder: No (06/05/2016 19:44:Mindy Triplett RN) Gen Hx Muscular Dystrophy: No (06/05/2016 19:44:Mindy Triplett RN) Gen Hx Cystic Fibrosis: No (06/05/2016 19:44:Mindy Triplett RN) Gen Hx [place] Chorea: No (06/05/2016 19:44:Mindy Triplett RN) Gen Hx Mental Retardation/Autism: No (06/05/2016 19:44:Mindy Triplett RN) Gen Hx Tested for Fragile X: No (06/05/2016 19:44:Mindy Triplett RN) Gen Hx Other Inher/Chromosomal: No (06/05/2016 19:44:Mindy Triplett RN) Gen Hx Maternal Metabolic DO: No (06/05/2016 19:44:Mindy Triplett RN) Gen Hx Pt Father or FOB Defect: No (06/05/2016 19:44:Mindy Triplett RN) Gen Hx Other Genetic History: No (06/05/2016 19:44:Mindy Triplett RN) Gen Hx Drugs/Meds since LMP: Yes (06/05/2016 19:44:Mindy Triplett RN) Gen Hx Medications: vitamins (06/05/2016 19:44:Mindy Triplett RN) Details of Genetic History: FOB - Grandmother MS (06/05/2016 19:44:Mindy Triplett RN)
--- NOTE | 2016-06-06 04:50 | L&D Admission Assessment ---
LD ADM ASMT Datetime Report Generated by CPN: 06/06/2016 04:46 PATIENT ASSESSMENT Assessment Type: Triage (06/05/2016 20:05:Mindy Field, RN) WEIGHT Weight (lb): 231 (06/05/2016 20:38:QS system process) Weight (kg): 105.0 (06/05/2016 20:38:QS system process) PAIN Pain Scale: 4 (06/05/2016 20:05:Mindy Triplett RN) Pain Presence: Constant (06/05/2016 20:05:Mindy Triplett RN) Pain Type: Sharp; Stabbing; Pressure; Ache (06/05/2016 20:05:Mindy Triplett RN) Pain Location: Right Flank (06/05/2016 20:05:Mindy Triplett RN) Pain Goal: 0 (06/05/2016 20:05:Mindy Triplett RN) Pain Related to Contraction: Unsure (06/05/2016 20:05:Mindy Triplett RN) Pain Comments: Patient took 1/2 of 200 mg Ibuprofen at 1900 (06/05/2016 20:05:Mindy Triplett RN) CONTRACTIONS Frequency (min): 2 (06/05/2016 20:30:Mindy Triplett RN) Duration (sec): 40-50 (06/05/2016 20:30:Mindy Triplett RN) Quality: Mild (06/05/2016 20:30:Mindy Triplett RN) Resting Tone Curtis: Relaxed (06/05/2016 21:30:Mindy Triplett RN) Resting Tone Curtis: Relaxed (06/05/2016 20:44:Mindy Triplett RN) Resting Tone Curtis: Relaxed (06/05/2016 20:30:Mindy Triplett RN) Contraction Comments: No contractions noted on strip (06/05/2016 21:30:Mindy Triplett RN) Contraction Comments: No contractions noted on strip (06/05/2016 20:44:Mindy Triplett, RN) NEURO Level of Consciousness: Fully Conscious (06/05/2016 20:05:Mindy Triplett RN) DTR's/Clonus: DTRs 1+; No Clonus (06/05/2016 20:05:Mindy Triplett RN) Headache: Denies (06/05/2016 20:05:Mindy Triplett RN) Dizziness: No (06/05/2016 20:05:Mindy Triplett RN) Blurred Vision: Yes (06/05/2016 20:05:Mindy Triplett RN) Extremity Numbness/Tingling : None (06/05/2016 20:05:Mindy Triplett RN) Extremity Movement: Full Range of Motion (06/05/2016 20:05:Mindy Triplett RN) CARDIOVASCULAR Heart Rhythm: Regular (06/05/2016 20:05:Mindy Triplett RN) Nailbeds: [place] (06/05/2016 20:05:Mindy Triplett RN) Capillary Refill: Less than 3 Seconds (06/05/2016 20:05:Mindy Triplett RN) Lower Extremities Edema: None (06/05/2016 20:05:Mindy Triplett RN) Lower Extremities Edema Degree: None (06/05/2016 20:05:Mindy Triplett RN) Upper Extremities Edema: None (06/05/2016 20:05:Mindy Triplett RN) Upper Extremities Edema Degree: None (06/05/2016 20:05:Mindy Triplett RN) Facial Edema: None (06/05/2016 20:05:Mindy Triplett RN) Constantin's Sign Left Leg: Negative (06/05/2016 20:05:Mindy Triplett RN) Constantin's Sign Right Leg: Negative (06/05/2016 20:05:Mindy Triplett RN) DVT RISK ASSESSMENT DVT Risk Age: Age less than 41 years (06/05/2016 20:05:Mindy Triplett RN) DVT Risk BMI: BMI 31 to 40 (06/05/2016 20:05:Mindy Triplett RN) RESPIRATORY Respiratory Effort: Unlabored; Regular Rhythm; Equal Expansion (06/05/2016 20:05:Mindy Triplett RN) Breath Sounds, Left: Clear and Equal (06/05/2016 20:05:Mindy Triplett RN) Breath Sounds, Right: Clear and Equal (06/05/2016 20:05:Mindy Triplett RN) Cough Productivity: Nonproductive (06/05/2016 20:05:Mindy Triplett RN) GASTROINTESTINAL Nausea/Vomiting: Present (06/05/2016 20:05:Mindy Triplett RN) Bowel Sounds: Normoactive (06/05/2016 20:05:Mindy Triplett RN) RUQ Epigastric Pain: Denies (06/05/2016 20:05:Mindy Triplett RN) Bowel Patterns: Soft, Formed Stool (06/05/2016 20:05:Mindy Triplett RN) Hemorrhoids: None (06/05/2016 20:05:Mindy Triplett RN) Diet Type: Regular diet (06/05/2016 20:05:Mindy Triplett RN) Last Meal: 06/05/2016 14:00 (06/05/2016 20:05:Mindy Triplett RN) GENITOURINARY Bladder: Nondistended (06/05/2016 20:05:Mindy Field ) Frequency of Urination: No ([facility]05[facility]2016 [facility] Urination Burning: No (06/05/2016 [facility] CVA Tenderness: No (06/05/2016 20:05[facility] INTEGUMENTARY Skin Color: Normal for Race (06/05/2016 20:05:[facility] Skin Temperature: Warm (06/05/2016 20:05[facility] Skin Moisture: Dry (06/05/2016 [facility] RICARDO SKIN ASSESSMENT Ricardo Scale Sensory Perception: No Impairment- Responds to verbal commands. Has no sensory deficit which would limit ability to feel or voice pain or discomfort (06/05/2016 20:05:Mindy Triplett RN) Ricardo Scale Moisture: Rarely Moist- Skin is usually dry. Linen only requires changing at routine intervals (06/05/2016 20:05:Mindy Triplett RN) Ricardo Scale Activity: Walks Frequently- Walks outside the room at least twice a day and inside room at least every 2 hours during the day. (06/05/2016 20:05:Mindy Triplett RN) Ricardo Scale Mobility: No Limitations- Makes major and frequent changes in position without assistance (06/05/2016 20:05:Mindy Triplett RN) Ricardo Scale Nutrition: Excellent- Eats most of every meal. Never refuses a meal. Usually eats a total of 4 or more servings of meat and dairy products. Occasionally eats between meals. Does not require supplementation (06/05/2016 20:05:Mindy Triplett RN) Ricardo Scale Friction and Shear: No Apparent Problem- Moves in bed and in chair independently and has sufficient muscle strength to lift up completely during move. Maintains good position in bed or chair at all times (06/05/2016 20:05:Mindy Triplett RN) Ricardo Scale Total: 23 (06/05/2016 20:05:QS system process) Ricardo Scale Risk: No Risk of Pressure Ulcer Noted at this Time (06/05/2016 20:05:QS system process) SUPPORT Family Support: Significant Other supportive, at bedside frequently (06/05/2016 20:05:Mindy Triplett RN) Emotional State: Anxious (06/05/2016 20:05:Mindy Triplett RN) SAFETY Call [place] Within Reach: Yes (06/05/2016 20:05:Mindy Triplett RN) Side Rails Up: Yes (06/05/2016 20:05:Mindy Triplett RN) Bed Wheels Locked: Yes (06/05/2016 20:05:Mindy Triplett RN) Arm Bands Present: Yes (06/05/2016 20:05:Mindy Triplett RN) Isolation: [place] (06/05/2016 20:05:Mindy Triplett RN) FALL SCREEN Fall Risk History of Falling: (0) No (06/05/2016 20:05:Mindy Triplett RN) Fall Risk Secondary Diagnosis: (0) No (06/05/2016 20:05:Mindy Triplett RN) Fall Risk Ambulatory Aid: (0) None/Bedrest/Wheelchair/Nurse Assist (06/05/2016 20:05:Mindy Triplett RN) Fall Risk IV Therapy: (0) No (06/05/2016 20:05:Mindy Triplett RN) Fall Risk Gait: (0) Normal/Bedrest/Immobile (06/05/2016 20:05:Mindy Triplett RN) Fall Risk Mental Status: (0) Oriented to Own Ability (06/05/2016 20:05:Mindy Triplett RN) Fall Risk Score: 0 (06/05/2016 20:05:QS system process) Fall Risk Score Definition: No Risk: No action required (06/05/2016 20:05:QS system process) RECENT TRAVEL/INFECTIOUS DISEASE Recent Exp Communicable Disease: No (06/05/2016 20:05:Mindy Triplett RN) Cough or Fever: Yes (06/05/2016 20:05:Mindy Triplett RN) Foreign Travel Past 10 Days: No (06/05/2016 20:05:Mindy Triplett RN) Open Wounds or Sores: No (06/05/2016 20:05:Mindy Triplett RN) Prior Antibiotic Resistance Tx: No (06/05/2016 20:05:Mindy Triplett RN) Cultures Obtained: Not Applicable (06/05/2016 20:05:Mindy Triplett RN) Isolation Initiated: No (06/05/2016 20:05:Mindy Triplett RN) Pt/Family Education: Handwashing Hygiene (06/05/2016 20:05:Mindy Triplett RN) BABY A FHR Baseline Rate (bpm) Baby A: 145 (06/05/2016 21:30:Mindy Triplett RN) FHR Baseline Rate (bpm) Baby A: 150 (06/05/2016 20:44:Mindy Triplett RN) FHR Baseline Rate (bpm) Baby A: 150 (06/05/2016 20:30:Mindy Triplett RN) Variability Baby A: Moderate 6-25 bpm (06/05/2016 21:30:Mindy Triplett RN) Variability Baby A: Moderate 6-25 bpm (06/05/2016 20:44:Mindy Triplett RN) Variability Baby A: Moderate 6-25 bpm (06/05/2016 20:30:Mindy Triplett RN) Accelerations Baby A: None (06/05/2016 21:30:Mindy Triplett RN) Accelerations Baby A: 10X10 (06/05/2016 20:44:Mindy Triplett RN) Accelerations Baby A: 15X15 (06/05/2016 20:30:Mindy Triplett RN) Decelerations Baby A: None (06/05/2016 21:30:Mindy Triplett RN) Decelerations Baby A: Variable (06/05/2016 20:44:Mindy Triplett RN) Decelerations Baby A: Variable (06/05/2016 20:30:Mindy Triplett RN)
--- NOTE | 2016-06-06 04:50 | L&D Current Admission ---
Current Admit Datetime Report Generated by CPN: 06/06/2016 04:46 ADMISSION INFORMATION Chief Complaint: Flank Pain (06/05/2016 20:05:Mindy Triplett, RN)
--- NOTE | 2016-06-06 10:50 | L&D Admission Assessment ---
LD ADM ASMT Datetime Report Generated by CPN: 06/06/2016 10:45 PATIENT ASSESSMENT Assessment Type: Triage (06/05/2016 20:05:Mindy Field, RN) WEIGHT Weight (lb): 231 (06/05/2016 20:38:QS system process) Weight (kg): 105.0 (06/05/2016 20:38:QS system process) PAIN Pain Scale: 4 (06/05/2016 20:05:Mindy Triplett RN) Pain Presence: Constant (06/05/2016 20:05:Mindy Triplett RN) Pain Type: Sharp; Stabbing; Pressure; Ache (06/05/2016 20:05:Mindy Triplett RN) Pain Location: Right Flank (06/05/2016 20:05:Mindy Triplett RN) Pain Goal: 0 (06/05/2016 20:05:Mindy Triplett RN) Pain Related to Contraction: Unsure (06/05/2016 20:05:Mindy Triplett RN) Pain Comments: Patient took 1/2 of 200 mg Ibuprofen at 1900 (06/05/2016 20:05:Mindy Triplett RN) CONTRACTIONS Frequency (min): 2 (06/05/2016 20:30:Mindy Triplett RN) Duration (sec): 40-50 (06/05/2016 20:30:Mindy Triplett RN) Quality: Mild (06/05/2016 20:30:Mindy Triplett RN) Resting Tone Peralta: Relaxed (06/05/2016 21:30:Mindy Triplett RN) Resting Tone [place]: Relaxed (06/05/2016 20:44:Mindy Triplett RN) Resting Tone Peralta: Relaxed (06/05/2016 20:30:Mindy Triplett RN) Contraction Comments: No contractions noted on strip (06/05/2016 21:30:Mindy Triplett RN) Contraction Comments: No contractions noted on strip (06/05/2016 20:44:Mindy Triplett, RN) NEURO Level of Consciousness: Fully Conscious (06/05/2016 20:05:Mindy Triplett RN) DTR's/Clonus: DTRs 1+; No Clonus (06/05/2016 20:05:Mindy Triplett RN) Headache: Denies (06/05/2016 20:05:Mindy Triplett RN) Dizziness: No (06/05/2016 20:05:Mindy Triplett RN) Blurred Vision: Yes (06/05/2016 20:05:Mindy Triplett RN) Extremity Numbness/Tingling : None (06/05/2016 20:05:Mindy Triplett RN) Extremity Movement: Full Range of Motion (06/05/2016 20:05:Mindy Triplett RN) CARDIOVASCULAR Heart Rhythm: Regular (06/05/2016 20:05:Mindy Triplett RN) Nailbeds: [place] (06/05/2016 20:05:Mindy Triplett RN) Capillary Refill: Less than 3 Seconds (06/05/2016 20:05:Mindy Triplett RN) Lower Extremities Edema: None (06/05/2016 20:05:Mindy Triplett RN) Lower Extremities Edema Degree: None (06/05/2016 20:05:Mindy Triplett RN) Upper Extremities Edema: None (06/05/2016 20:05:Mindy Triplett RN) Upper Extremities Edema Degree: None (06/05/2016 20:05:Mindy Triplett RN) Facial Edema: None (06/05/2016 20:05:Mindy Triplett RN) Constantin's Sign Left Leg: Negative (06/05/2016 20:05:Mindy Triplett RN) Constantin's Sign Right Leg: Negative (06/05/2016 20:05:Mindy Triplett RN) DVT RISK ASSESSMENT DVT Risk Age: Age less than 41 years (06/05/2016 20:05:Mindy Triplett RN) DVT Risk BMI: BMI 31 to 40 (06/05/2016 20:05:Mindy Triplett RN) RESPIRATORY Respiratory Effort: Unlabored; Regular Rhythm; Equal Expansion (06/05/2016 20:05:Mindy Triplett RN) Breath Sounds, Left: Clear and Equal (06/05/2016 20:05:Mindy Triplett RN) Breath Sounds, Right: Clear and Equal (06/05/2016 20:05:Mindy Triplett RN) Cough Productivity: Nonproductive (06/05/2016 20:05:Mindy Tripltet RN) GASTROINTESTINAL Nausea/Vomiting: Present (06/05/2016 20:05:Mindy Triplett RN) Bowel Sounds: Normoactive (06/05/2016 20:05:Mindy Triplett RN) RUQ Epigastric Pain: Denies (06/05/2016 20:05:Mindy Triplett RN) Bowel Patterns: Soft, Formed Stool (06/05/2016 20:05:Mindy Triplett RN) Hemorrhoids: None (06/05/2016 20:05:Mindy Triplett RN) Diet Type: Regular diet (06/05/2016 20:05:Mindy Triplett RN) Last Meal: 06/05/2016 14:00 (06/05/2016 20:05:Mindy Triplett RN) GENITOURINARY Bladder: Nondistended (06/05/2016 20:05:Mindy Field ) Frequency of Urination: [facility] Urination Burning: No (06/05/2016 [facility] CVA Tenderness: No (06/05/2016 [facility] INTEGUMENTARY Skin Color: Normal for Race (06/05/2016 [facility] Skin Temperature: Warm (06/05/2016 [facility] Skin Moisture: Dry [facility]05[facility]2016 [facility] RICARDO SKIN ASSESSMENT Ricardo Scale Sensory Perception: No Impairment- Responds to verbal commands. Has no sensory deficit which would limit ability to feel or voice pain or discomfort (06/05/2016 20:05:Mindy Triplett RN) Ricardo Scale Moisture: Rarely Moist- Skin is usually dry. Linen only requires changing at routine intervals (06/05/2016 20:05:Mindy Triplett RN) Ricardo Scale Activity: Walks Frequently- Walks outside the room at least twice a day and inside room at least every 2 hours during the day. (06/05/2016 20:05:Mindy Triplett RN) Ricardo Scale Mobility: No Limitations- Makes major and frequent changes in position without assistance (06/05/2016 20:05:Mindy Triplett RN) Ricardo Scale Nutrition: Excellent- Eats most of every meal. Never refuses a meal. Usually eats a total of 4 or more servings of meat and dairy products. Occasionally eats between meals. Does not require supplementation (06/05/2016 20:05:Mindy Triplett RN) Ricardo Scale Friction and Shear: No Apparent Problem- Moves in bed and in chair independently and has sufficient muscle strength to lift up completely during move. Maintains good position in bed or chair at all times (06/05/2016 20:05:Mindy Triplett RN) Ricardo Scale Total: 23 (06/05/2016 20:05:QS system process) Ricardo Scale Risk: No Risk of Pressure Ulcer Noted at this Time (06/05/2016 20:05:QS system process) SUPPORT Family Support: Significant Other supportive, at bedside frequently (06/05/2016 20:05:Mindy Triplett RN) Emotional State: Anxious (06/05/2016 20:05:Mindy Triplett RN) SAFETY Call [place] Within Reach: Yes (06/05/2016 20:05:Mindy Triplett RN) Side Rails Up: Yes (06/05/2016 20:05:Mindy Triplett RN) Bed Wheels Locked: Yes (06/05/2016 20:05:Mindy Triplett RN) Arm Bands Present: Yes (06/05/2016 20:05:Mindy Triplett RN) Isolation: [place] (06/05/2016 20:05:Mindy Triplett RN) FALL SCREEN Fall Risk History of Falling: (0) No (06/05/2016 20:05:Mindy Trilpett RN) Fall Risk Secondary Diagnosis: (0) No (06/05/2016 20:05:Mindy Triplett RN) Fall Risk Ambulatory Aid: (0) None/Bedrest/Wheelchair/Nurse Assist (06/05/2016 20:05:Mindy Triplett RN) Fall Risk IV Therapy: (0) No (06/05/2016 20:05:Mindy Triplett RN) Fall Risk Gait: (0) Normal/Bedrest/Immobile (06/05/2016 20:05:Mindy Triplett RN) Fall Risk Mental Status: (0) Oriented to Own Ability (06/05/2016 20:05:Mindy Triplett RN) Fall Risk Score: 0 (06/05/2016 20:05:QS system process) Fall Risk Score Definition: No Risk: No action required (06/05/2016 20:05:QS system process) RECENT TRAVEL/INFECTIOUS DISEASE Recent Exp Communicable Disease: No (06/05/2016 20:05:Mindy Triplett RN) Cough or Fever: Yes (06/05/2016 20:05:Mindy Triplett RN) Foreign Travel Past 10 Days: No (06/05/2016 20:05:Mindy Triplett RN) Open Wounds or Sores: No (06/05/2016 20:05:Mindy Triplett RN) Prior Antibiotic Resistance Tx: No (06/05/2016 20:05:Mindy Triplett RN) Cultures Obtained: Not Applicable (06/05/2016 20:05:Mindy Triplett RN) Isolation Initiated: No (06/05/2016 20:05:Mindy Triplett RN) Pt/Family Education: Handwashing Hygiene (06/05/2016 20:05:Mindy Triplett RN) BABY A FHR Baseline Rate (bpm) Baby A: 145 (06/05/2016 21:30:Mindy Triplett RN) FHR Baseline Rate (bpm) Baby A: 150 (06/05/2016 20:44:Mindy Triplett RN) FHR Baseline Rate (bpm) Baby A: 150 (06/05/2016 20:30:Mindy Triplett RN) Variability Baby A: Moderate 6-25 bpm (06/05/2016 21:30:Mindy Triplett RN) Variability Baby A: Moderate 6-25 bpm (06/05/2016 20:44:Mindy Triplett RN) Variability Baby A: Moderate 6-25 bpm (06/05/2016 20:30:Mindy Triplett RN) Accelerations Baby A: None (06/05/2016 21:30:Mindy Triplett RN) Accelerations Baby A: 10X10 (06/05/2016 20:44:Mindy Triplett RN) Accelerations Baby A: 15X15 (06/05/2016 20:30:Mindy Triplett RN) Decelerations Baby A: None (06/05/2016 21:30:Mindy Triplett RN) Decelerations Baby A: Variable (06/05/2016 20:44:Mindy Triplett RN) Decelerations Baby A: Variable (06/05/2016 20:30:Mindy Triplett RN)
--- NOTE | 2016-06-06 10:50 | L&D General Admission ---
General Admit Datetime Report Generated by CPN: 06/06/2016 10:45 INFORMATION Patient Age: 20 (06/05/2016 19:41:QS system process) EDC: 07/22/2016 00:00 (06/05/2016 19:44:Crystal Mumford, RN) : 1 (06/05/2016 19:44:Crystal Robbie, RN) Para: 0 (06/05/2016 19:44:Crystal Robbie, RN) Baby, Number in Womb: 1 (06/05/2016 19:44:Mindy Triplett RN) CARE Primary Warehouse Shipping Supervisor: [facility] (06/05/2016 19:44:Mindy Triplett RN) Adequate Care: Yes (06/05/2016 19:44:Mindy Triplett RN) Height (in): 63 (06/05/2016 20:38:QS system process) ALLERGIES Medication Allergy: No (06/05/2016 19:44:Mindy Triplett RN) Medication Allergies: No Known Allergies (01/20/2015) (06/05/2016 19:41:QS system process) Latex Allergy: No Latex Allergies (06/05/2016 19:44:Mindy Triplett RN) Food Allergies: N/A (06/05/2016 19:44:Mindy Triplett RN) Environmental Allergies: N/a (06/05/2016 19:44:Mindy Triplett RN) COMMUNICATION Primary Language: Icelandic (06/05/2016 19:44:Mindy Triplett RN) Medical Tx Preferred Language: Icelandic (06/05/2016 19:44:Mindy Triplett RN) Communication Barrier(s): None (06/05/2016 19:44:Mindy Triplett RN) DEMOGRAPHICS Address: [address] [place] [id number] (06/05/2016 19:41:QS system process) Zipcode: [id number] (06/05/2016 19:41:QS system process) Home (06/05/2016 19:41:QS system process) SSN: [id number] (06/05/2016 19:41:QS system process) Next of Kin Name: MAGNOLIA BETH (06/05/2016 19:41:QS system process) Next of Kin (06/05/2016 19:41:QS system process) Next of Kin Relationship: MO (06/05/2016 19:41:QS system process) Date of : 1995 (06/05/2016 19:41:QS system process) Marital Status: Single (06/05/2016 19:41:QS system process) Sex: Female (06/05/2016 19:41:QS system process) Race: Other (06/05/2016 19:41:QS system process) Ethnicity: Non- or (06/05/2016 19:41:QS system process) Sikhism: None (06/05/2016 19:41:QS system process) FOB Involved: Yes (06/05/2016 19:44:Mindy Triplett RN) Father of Baby Name: Zhao Kearns (06/05/2016 19:44:Mindy Triplett RN) DRUG AND ALCOHOL USE Alcohol: No (06/05/2016 19:44:Mindy Triplett RN) Cigarettes: Never Smoker. [id number] (06/05/2016 19:44:Mindy Triplett RN) Marijuana: No (06/05/2016 19:44:Mindy Triplett RN) Cocaine: No (06/05/2016 19:44:Mindy Triplett RN) Other Illicit Drugs: No (06/05/2016 19:44:Mindy Triplett RN) VACCINE HISTORY Influenza Vaccine: No (06/05/2016 19:44:Mindy Triplett RN) Pneumococcal Vaccine: No (06/05/2016 19:44:Mindy Triplett RN) Tetanus Vaccine: No (06/05/2016 19:44:Mindy Triplett RN) Tdap Vaccine: No (06/05/2016 19:44:Mindy Triplett RN) Hepatitis B Vaccine: Yes (06/05/2016 19:44:Mindy Triplett RN) Feeding Preference: Both (06/05/2016 19:44:Mindy Triplett RN) Benefit of Breast Feed Discussed: Yes (06/05/2016 19:44:Mindy Triplett RN) Circumcision: Yes (06/05/2016 19:44:Mindy Triplett RN) Tubal Ligation: No (06/05/2016 19:44:Mindy Triplett RN) Tubal Authorization Signed: N/A (06/05/2016 19:44:Mindy Triplett RN) Consent: N/A (06/05/2016 19:44:Mindy Triplett RN) Consent Signed: N/A (06/05/2016 19:44:Mindy Triplett RN) Pain Management Plans: Epidural (06/05/2016 19:44:Mindy Triplett RN) Plans for Labor and Delivery: None (06/05/2016 19:44:Mindy Triplett RN) Support Person: Zhao Kearns (06/05/2016 19:44:Mindy Triplett RN) Support Person Relationship: Significant Other (06/05/2016 19:44:Mindy Triplett RN) Cultural/Spritual Practice: No (06/05/2016 19:44:Mindy Triplett RN) Spir/Cult Dietary Needs: No (06/05/2016 19:44:Mindy Triplett RN) LIVING SITUATION/DISCHARGE PLAN Living Arrangements: House (06/05/2016 19:44:Mindy Triplett RN) Adequate Access to:: Electric; Heat; Refrigeration; Plumbing/Running water; Phone; Transportation (06/05/2016 19:44:Mindy Triplett RN) WIC Program: Yes (06/05/2016 19:44:Mindy Triplett RN) Discharge Look Out Tower Fire Watcher Person: Zhao Kearns (06/05/2016 19:44:Mindy Triplett RN) Person to Help after Discharge: Zhao Kearns (06/05/2016 19:44:Mindy Triplett RN) Currently Using Commun Resources: No (06/05/2016 19:44:Mindy Triplett RN) Outside Agency/Pension Consultant: No (06/05/2016 19:44:Mindy Triplett RN) Car Seat for Discharge: Yes (06/05/2016 19:44:Mindy Triplett RN) Adoption Requested: No (06/05/2016 19:44:Mindy Triplett RN) Pt Contact w/ Post : N/A (06/05/2016 19:44:Mindy Triplett RN) LABS Blood Type: O Positive (06/05/2016 19:44:Mindy Triplett RN) Antibody Screen: negative (06/05/2016 19:44:Mindy Triplett RN) Hemoglobin: 10.7 L (06/05/2016 21:28:QS system process) Hematocrit: 31.8 L (06/05/2016 21:28:QS system process) MCV: 73 L (06/05/2016 21:28:QS system process) Gonorrhea: Negative (06/05/2016 19:44:Mindy Triplett RN) Chlamydia: Negative (06/05/2016 19:44:Mindy Triplett RN) RPR/VDRL: Nonreactive (06/05/2016 19:44:Mindy Triplett RN) HIV Exposure Test: Negative (06/05/2016 19:44:Mindy Triplett RN) Hepatitis B: Negative (06/05/2016 19:44:Mindy Triplett RN) Rubella: Immune (06/05/2016 19:44:Mindy Triplett RN) Varicella: Non Susceptible (06/05/2016 19:44:Mindy Triplett RN) OB/PREVIOUS HISTORY Current Procedures: Ultrasound (06/05/2016 19:44:Mindy Triplett RN) History of Previous : No (06/05/2016 19:44:Mindy Triplett RN) History of Gestational Diabetes: No (06/05/2016 19:44:Mindy Triplett RN) History of PIH: No (06/05/2016 19:44:Mindy Triplett RN) History of Incompetent Cervix: No (06/05/2016 19:44:Mindy Triplett RN) History of Placenta Previa/Abrup: No (06/05/2016 19:44:Mindy Triplett RN) History of Macrosomia: No (06/05/2016 19:44:Mindy Field, RN) History of IUGR: No (06/05/2016 19:44:Mindy Triplett RN) History of Hemorrhage: No (06/05/2016 19:44:Mindy Triplett RN) History of Loss/Stillborn: No (06/05/2016 19:44:Mindy Triplett RN) History of : No (06/05/2016 19:44:Mindy Triplett RN) History of D (Rh) Sensitization: No (06/05/2016 19:44:Mindy Triplett RN) History Recurrent Loss/Stillborn: No (06/05/2016 19:44:Mindy Triplett RN) History Depression/PP Depression: Yes (06/05/2016 19:44:Mindy Triplett RN) History of Uterine Anomaly/KRISTAL: No (06/05/2016 19:44:Mindy Triplett RN) History of Infertility: No (06/05/2016 19:44:Mindy Triplett RN) History of ART Treatment: No (06/05/2016 19:44:Mindy Triplett RN) History of KRISTAL: No (06/05/2016 19:44:Mindy Triplett RN) Comments Obstetrical History: G1 - Current (06/05/2016 19:44:Mindy Triplett RN) MEDICAL HISTORY Med Hx Diabetes: Yes (06/05/2016 19:44:Mindy Triplett RN) Diabetes Type: Gestational Diabetes (06/05/2016 19:44:Mindy Triplett RN) Med Hx Hypertension: No (06/05/2016 19:44:Mindy Triplett RN) Med Hx Heart Disease: No (06/05/2016 19:44:Mindy Triplett RN) Med Hx Autoimmune Disorder: No (06/05/2016 19:44:Mindy Triplett RN) Med Hx Kidney Disease/UTI: No (06/05/2016 19:44:Mindy Triplett RN) Med Hx Neurologic/Epilepsy: No (06/05/2016 19:44:Mindy Triplett RN) Med Hx Psychiatric Disorders: No (06/05/2016 19:44:Mindy Triplett RN) Med Hx Hepatitis/Liver Disease: No (06/05/2016 19:44:Minyd Triplett RN) Med Hx Varicosities/Phlebitis: No (06/05/2016 19:44:Mindy Triplett RN) Med Hx Thyroid Dysfunction: No (06/05/2016 19:44:Mindy Triplett RN) Med Hx Trauma/Violence: No (06/05/2016 19:44:Mindy Triplett RN) Med Hx Blood Transfusion: No (06/05/2016 19:44:Mindy Triplett RN) Med Hx Pulmonary (Asthma,TB): No (06/05/2016 19:44:Mindy Triplett RN) Med Hx Breast: No (06/05/2016 19:44:Mindy Triplett RN) Med Hx BANANA EXPERT Surgery: No (06/05/2016 19:44:Mindy Triplett RN) Med Hx Hospitalization/Surgery: No (06/05/2016 19:44:Mindy Triplett RN) Med Hx Anesthetic Complications: No (06/05/2016 19:44:Mindy Triplett RN) Med Hx Abnormal Pap Smear: No (06/05/2016 19:44:Mindy Triplett RN) Other Medical Diseases: No (06/05/2016 19:44:Mindy Triplett RN) Med Hx Significant Family Hx: No (06/05/2016 19:44:Mindy Triplett RN) Details of Med/Surg Hx: Depression, anxiety, sickle cell trait (06/05/2016 19:44:Mindy Triplett RN) INFECTIOUS HISTORY Inf Hx Gonorrhea: No (06/05/2016 19:44:Mindy Triplett RN) Inf Hx Chlamydia: No (06/05/2016 19:44:Mindy Triplett RN) Inf Hx Syphilis: No (06/05/2016 19:44:Mindy Triplett RN) Inf Hx HIV/AIDS: No (06/05/2016 19:44:Mindy Triplett RN) Inf Hx Human Papilloma Virus: No (06/05/2016 19:44:Mindy Triplett RN) Inf Hx Pt/Partner Genital Herpes: No (06/05/2016 19:44:Mindy Triplett RN) Inf Hx Tuberculosis/Exposure: No (06/05/2016 19:44:Mindy Triplett RN) Inf Hx Hepatitis B,C: No (06/05/2016 19:44:Mindy Triplett RN) Inf Hx Rash or Viral Illness: No (06/05/2016 19:44:Mindy Triplett RN) GENETIC HISTORY Gen Hx Age >=35 at NANCY: No (06/05/2016 19:44:Mindy Triplett RN) Gen Hx Thalassemia: No (06/05/2016 19:44:Mindy Triplett RN) Gen Hx Congenital Heart Defect: No (06/05/2016 19:44:Mindy Triplett RN) Gen Hx Neural Tube Defect: No (06/05/2016 19:44:Mindy Triplett RN) Gen Hx Down's Syndrome: No (06/05/2016 19:44:Mindy Triplett RN) Gen Hx Elijah-Sachs: No (06/05/2016 19:44:Mindy Triplett RN) Gen Hx Boni: No (06/05/2016 19:44:Mindy Triplett RN) Gen Hx Familial Dysautonomia: No (06/05/2016 19:44:Mindy Triplett RN) Gen Hx Sickle Cell Disease/Trait: Yes (06/05/2016 19:44:Mindy Triplett RN) Gen Hx Hemophilia/Blood Disorder: No (06/05/2016 19:44:Mindy Triplett RN) Gen Hx Muscular Dystrophy: No (06/05/2016 19:44:Mindy Triplett RN) Gen Hx Cystic Fibrosis: No (06/05/2016 19:44:Mindy Triplett RN) Gen Hx [place] Chorea: No (06/05/2016 19:44:Mindy Triplett RN) Gen Hx Mental Retardation/Autism: No (06/05/2016 19:44:Mindy Triplett RN) Gen Hx Tested for Fragile X: No (06/05/2016 19:44:Mindy Triplett RN) Gen Hx Other Inher/Chromosomal: No (06/05/2016 19:44:Mindy Triplett RN) Gen Hx Maternal Metabolic DO: No (06/05/2016 19:44:Mindy Triplett RN) Gen Hx Pt Father or FOB Defect: No (06/05/2016 19:44:Mindy Triplett RN) Gen Hx Other Genetic History: No (06/05/2016 19:44:Mindy Triplett RN) Gen Hx Drugs/Meds since LMP: Yes (06/05/2016 19:44:Mindy Triplett RN) Gen Hx Medications: vitamins (06/05/2016 19:44:Mindy Triplett RN) Details of Genetic History: FOB - Grandmother MS (06/05/2016 19:44:Mindy Triplett RN)
--- NOTE | 2016-06-06 10:50 | L&D Current Admission ---
Current Admit Datetime Report Generated by CPN: 06/06/2016 10:45 ADMISSION INFORMATION Chief Complaint: Flank Pain (06/05/2016 20:05:Mindy Triplett, RN)
--- NOTE | 2016-06-06 10:51 | Antepartum Discharge Summary ---
Antepartum DC Datetime Report Generated by CPN: 06/06/2016 10:45 DIET/ACTIVITY/RESTRICTIONS Diet: Regular (06/05/2016 22:22:Mindy , RN) Activity: Normal Activity (06/05/2016 22:22:Mindy Field, RN) TEACHING/INSTRUCTIONS/REFERRALS Instructions Given To: Patient and family (06/05/2016 22:22:Mindy , RN) Instructions Understood: Patient Verbalized Understanding; Support Person Verbalized Understanding (06/05/2016 22:22:Mindy Triplett RN) Referrals: None (06/05/2016 22:22:Mindy Triplett RN) Educational Materials- Other: Kick Counts OTC Medications (06/05/2016:22:Mindy Triplett RN) DISCHARGE INFORMATION Discharged AMA: No (06/05/2016 22:22:Mindy Triplett RN) Discharge Date/Time: 06/05/2016 22:21 (06/05/2016 22:22:Mindy Triplett RN) Discharged To: Home (06/05/2016 22:22:Mindy Triplett RN) Discharge Provider Name: Dr. Pack (06/05/2016 22:22:Mindy Triplett RN) Accompanied By: Family (06/05/2016 22:22:Mindy Triplett RN) Discharge Method: Wheelchair (06/05/2016 22:22:Mindy Triplett RN) Condition: Stable (06/05/2016 22:22:Mindy Triplett RN) FOLLOW UP INFORMATION Follow Up With: [facility] (06/05/2016 22:22:Mindy Triplett RN) Follow Up On: As Scheduled (06/05/2016 22:22:Mindy Triplett RN) Follow Up Phone Number: [facility] - (06/05/2016 22:22:Mindy Triplett RN) Comments: Discussed kick counts, OTC medications, and signs and symptoms of when to return to office or hospital with patient and family. All, patient and family, verbalized understanding. Patient discharged home due to false labor via wheelchair in stable condition. (06/05/2016 22:22:Mindy Triplett RN) GENERAL INSTR-CALL PROVIDER IF: Contractions: Contractions or cramps become more frequent than 8 in one hour or 4 in 20 minutes; Regular painful contractions every 5 minutes or less for one hour. Time your contractions from the beginning of one to the beginning of the next (06/05/2016 22:22:Mindy Triplett RN) Pressure: Pressure in your vagina or lower abdomen that may feel like the baby is pushing down (06/05/2016 22:22:Mindy Triplett RN) Period Like Cramps: Period-like cramps or low dull backache that may come and go (06/05/2016 22:22:Mindy Triplett RN) Cramps/Diarrhea: Abdominal cramps that may be accompanied by diarrhea (06/05/2016 22:22:Mindy Triplett RN) Gush of Fluid/Blood: Gush of fluid or blood from your vagina (it is normal to have spotting after vaginal exam or intercourse) (06/05/2016 22:22:Mindy Triplett RN) Vaginal Discharge: Change in the type or amount of vaginal discharge (06/05/2016 22:22:Mindy Triplett RN) Decreased Movement: Your baby is not moving as much as usual- 4 movements in 1 hour after drinking and resting on side (06/05/2016 22:22:Mindy Triplett RN) Temperature: Temperature greater than 100.0(F) orally (06/05/2016 22:22:Mindy Triplett RN) Hypertension Signs/Symptoms: Severe headache which is not relieved 30 minutes after taking Tylenol(Acetaminophen); Blurry vision or spots before your eyes; Severe heartburn or pain on the upper right side of your abdomen that is not relieved by an antacid; Increased swelling in your face, hands or feet (06/05/2016 22:22:Mindy Triplett RN) Urinary Output: Decreased urinary output or dark colored urine (06/05/2016 22:22:Mindy Triplett RN)
--- NOTE | 2016-06-06 10:51 | L&D Discharge Summary ---
OB Discharge Summary Datetime Report Generated by CPN: 06/06/2016 10:45 DISCHARGE DIAGNOSIS Diagnosis/Symptoms: False Labor; UTI Gestation: 33.2 Number of Babies in Womb: 1 Parity: 0 DIET/ACTIVITY/RESTRICTIONS Diet: Regular Activity: Normal Activity TEACHING/INSTRUCTIONS/REFERRALS Instructions Given To: Patient and family Instructions Understood: Patient Verbalized Understanding; Support Person Verbalized Understanding Referrals: None Educational Materials- Other: Kick Counts OTC Medications DISCHARGE INFORMATION Discharged AMA: No Discharge Date/Time: 06/05/2016 22:21 Discharged To: Home Discharge Provider Name: Dr. Pack Accompanied By: Family Discharge Method: Wheelchair Condition: Stable FOLLOW UP INFORMATION Follow Up With: [facility] Follow Up On: As Scheduled Follow Up Phone Number: [facility] [employer] [facility] - Comments: Discussed kick counts, OTC medications, and signs and symptoms of when to return to office or hospital with patient and family. All, patient and family, verbalized understanding. Patient discharged home due to false labor via wheelchair in stable condition. GENERAL INSTR-CALL PROVIDER IF: Contractions: Contractions or cramps become more frequent than 8 in one hour or 4 in 20 minutes; Regular painful contractions every 5 minutes or less for one hour. Time your contractions from the beginning of one to the beginning of the next Pressure: Pressure in your vagina or lower abdomen that may feel like the baby is pushing down Period Like Cramps: Period-like cramps or low dull backache that may come and go Cramps/Diarrhea: Abdominal cramps that may be accompanied by diarrhea Gush of Fluid/Blood: Gush of fluid or blood from your vagina (it is normal to have spotting after vaginal exam or intercourse) Vaginal Discharge: Change in the type or amount of vaginal discharge Decreased Movement: Your baby is not moving as much as usual- 4 movements in 1 hour after drinking and resting on side Temperature: Temperature greater than 100.0(F) orally
== END 2016-06-05 22:21 | disposition home or self-care (01) ==
LOC: LC 19:41
PROVIDERS: ATTEND Obstetrics & Gynecology
PROC: 4A1HXCZ Monitoring of Products of Conception, Cardiac Rate, External Approach (ICD-10-PCS; principal; 2016-06-05)
DX: O47.03 False labor before 37 completed weeks of gestation, third trimester (principal); Z3A.33 33 weeks gestation of pregnancy
CPT/HCPCS: 59025; 36415; 85025; 80053; 81001; 80307; 76705; 76815; J3490 ×3; J0696

== ENCOUNTER 2016-06-12 17:18 | Outpatient (CLI) | payer MEDICAID ==
--- NOTE | 2016-06-12 18:02 | L&D General Admission ---
General Admit Datetime Report Generated by CPN: 06/12/2016 18:00 INFORMATION Patient Age: 20 (06/05/2016 19:41:QS system process) EDC: 07/22/2016 00:00 (06/05/2016 19:44:Crystal [place], RN) : 1 (06/05/2016 19:44:Crystal Robbie, RN) Para: 0 (06/05/2016 19:44:Crystal Robbie, RN) Baby, Number in Womb: 1 (06/05/2016 19:44:Mindy Triplett RN) CARE Primary Circulator: [facility] (06/05/2016 19:44:Mindy Triplett RN) Adequate Care: Yes (06/05/2016 19:44:Mindy Triplett RN) Height (in): 63 (06/12/2016 17:53:QS system process) ALLERGIES Medication Allergy: No (06/05/2016 19:44:Mindy Triplett RN) Medication Allergies: No Known Allergies (01/20/2015) (06/05/2016 19:41:QS system process) Latex Allergy: No Latex Allergies (06/05/2016 19:44:Mindy Triplett RN) Food Allergies: N/A (06/05/2016 19:44:Mindy Triplett RN) Environmental Allergies: N/a (06/05/2016 19:44:Mindy Triplett RN) COMMUNICATION Primary Language: Japanese (06/05/2016 19:44:Mindy Triplett RN) Medical Tx Preferred Language: Japanese (06/05/2016 19:44:Mindy Triplett RN) Communication Barrier(s): None (06/05/2016 19:44:Mindy Triplett RN) DEMOGRAPHICS Address: [address] [place] [id number] (06/05/2016 19:41:QS system process) Zipcode: [phone] (06/05/2016 19:41:QS system process) Home (06/12/2016 17:18:QS system process) SSN: [id number] (06/05/2016 19:41:QS system process) Next of Kin Name: FERNANDO MO (06/12/2016 17:18:QS system process) Next of Kin (06/12/2016 17:18:QS system process) Next of Kin Relationship: OR (06/12/2016 17:18:QS system process) Date of : 1995 (06/05/2016 19:41:QS system process) Marital Status: Single (06/05/2016 19:41:QS system process) Sex: Female (06/05/2016 19:41:QS system process) Race: Other (06/05/2016 19:41:QS system process) Ethnicity: Non- or (06/05/2016 19:41:QS system process) Sikh: None (06/05/2016 19:41:QS system process) FOB Involved: Yes (06/05/2016 19:44:Mindy Triplett RN) Father of Baby Name: Zhao Kearns (06/05/2016 19:44:Mindy Triplett RN) DRUG AND ALCOHOL USE Alcohol: No (06/05/2016 19:44:Mindy Triplett RN) Cigarettes: Never Smoker. [id number] (06/05/2016 19:44:Mindy Triplett RN) Marijuana: No (06/05/2016 19:44:Mindy Triplett RN) Cocaine: No (06/05/2016 19:44:Mindy Triplett RN) Other Illicit Drugs: No (06/05/2016 19:44:Mindy Triplett RN) VACCINE HISTORY Influenza Vaccine: No (06/05/2016 19:44:Mindy Triplett RN) Pneumococcal Vaccine: No (06/05/2016 19:44:Mindy Triplett RN) Tetanus Vaccine: No (06/05/2016 19:44:Mindy Triplett RN) Tdap Vaccine: No (06/05/2016 19:44:Mindy Triplett RN) Hepatitis B Vaccine: Yes (06/05/2016:44:Mindy Triplett RN) Feeding Preference: Both (06/05/2016 19:44:Mindy Triplett RN) Benefit of Breast Feed Discussed: Yes (06/05/2016 19:44:Mindy Triplett RN) Circumcision: Yes (06/05/2016 19:44:Mindy Triplett RN) Tubal Ligation: No (06/05/2016 19:44:Mindy Triplett RN) Tubal Authorization Signed: N/A (06/05/2016 19:44:Mindy Triplett RN) Consent: N/A (06/05/2016 19:44:Mindy Triplett RN) Consent Signed: N/A (06/05/2016 19:44:Mindy Triplett RN) Pain Management Plans: Epidural (06/05/2016 19:44:Mindy Triplett RN) Plans for Labor and Delivery: None (06/05/2016 19:44:Mindy Triplett RN) Support Person: Zhao Kearns (06/05/2016 19:44:Mindy Triplett RN) Support Person Relationship: Significant Other (06/05/2016 19:44:Mindy Triplett RN) Cultural/Spritual Practice: No (06/05/2016 19:44:Mindy Triplett RN) Spir/Cult Dietary Needs: No (06/05/2016 19:44:Mindy Triplett RN) LIVING SITUATION/DISCHARGE PLAN Living Arrangements: House (06/05/2016 19:44:Mindy Triplett RN) Adequate Access to:: Electric; Heat; Refrigeration; Plumbing/Running water; Phone; Transportation (06/05/2016 19:44:Mindy Triplett RN) WIC Program: Yes (06/05/2016 19:44:Mindy Triplett RN) Discharge Compliance Review Officer Person: Zhao Kearns (06/05/2016 19:44:Mindy Triplett RN) Person to Help after Discharge: Zhao Kearns (06/05/2016 19:44:Mindy Triplett RN) Currently Using Commun Resources: No (06/05/2016 19:44:Mindy Triplett RN) Outside Agency/Operating Cost Clerk: No (06/05/2016 19:44:Mindy Triplett RN) Car Seat for Discharge: Yes (06/05/2016 19:44:Mindy Triplett RN) Adoption Requested: No (06/05/2016 19:44:Mindy Triplett RN) Pt Contact w/infant Post : N/A (06/05/2016 19:44:Mindy Triplett RN) LABS Blood Type: O Positive (06/05/2016 19:44:Mindy Triplett RN) Antibody Screen: negative (06/05/2016 19:44:Mindy Triplett RN) Hemoglobin: 10.7 L (06/05/2016 21:28:QS system process) Hematocrit: 31.8 L (06/05/2016 21:28:QS system process) MCV: 73 L (06/05/2016 21:28:QS system process) Gonorrhea: Negative (06/05/2016 19:44:Mindy Triplett RN) Chlamydia: Negative (06/05/2016 19:44:Mindy Triplett RN) RPR/VDRL: Nonreactive (06/05/2016 19:44:Mindy Triplett RN) HIV Exposure Test: Negative (06/05/2016 19:44:Mindy Triplett RN) Hepatitis B: Negative (06/05/2016 19:44:Mindy Triplett RN) Rubella: Immune (06/05/2016 19:44:Mindy Triplett RN) Varicella: Non Susceptible (06/05/2016 19:44:Mindy Triplett RN) OB/PREVIOUS HISTORY Current Procedures: Ultrasound (06/05/2016 19:44:Mindy Triplett RN) History of Previous : No (06/05/2016 19:44:Mindy Triplett RN) History of Gestational Diabetes: No (06/05/2016 19:44:Mindy Triplett RN) History of PIH: No (06/05/2016 19:44:Mindy Triplett RN) History of Incompetent Cervix: No (06/05/2016 19:44:Mindy Triplett RN) History of Placenta Previa/Abrup: No (06/05/2016 19:44:Mindy Triplett RN) History of Macrosomia: No (06/05/2016 19:44:Mindy Triplett RN) History of IUGR: No (06/05/2016 19:44:Mindy Triplett RN) History of Hemorrhage: No (06/05/2016 19:44:Mindy Triplett RN) History of Loss/Stillborn: No (06/05/2016 19:44:Mindy Triplett RN) History of : No (06/05/2016 19:44:Mindy Triplett RN) History of D (Rh) Sensitization: No (06/05/2016 19:44:Mindy Triplett RN) History Recurrent Loss/Stillborn: No (06/05/2016 19:44:Mindy Triplett RN) History Depression/PP Depression: Yes (06/05/2016 19:44:Mindy Triplett RN) History of Uterine Anomaly/KRISTAL: No (06/05/2016 19:44:Mindy Triplett RN) History of Infertility: No (06/05/2016 19:44:Mindy Triplett RN) History of ART Treatment: No (06/05/2016 19:44:Mindy Triplett RN) History of KRISTAL: No (06/05/2016 19:44:Mindy Triplett RN) Comments Obstetrical History: G1 - Current (06/05/2016 19:44:Mindy Triplett RN) MEDICAL HISTORY Med Hx Diabetes: Yes (06/05/2016 19:44:Mindy Triplett RN) Diabetes Type: Gestational Diabetes (06/05/2016 19:44:Mindy Triplett RN) Med Hx Hypertension: No (06/05/2016 19:44:Mindy Triplett RN) Med Hx Heart Disease: No (06/05/2016 19:44:Mindy Triplett RN) Med Hx Autoimmune Disorder: No (06/05/2016 19:44:Mindy Triplett RN) Med Hx Kidney Disease/UTI: No (06/05/2016 19:44:Mindy Triplett RN) Med Hx Neurologic/Epilepsy: No (06/05/2016 19:44:Mindy Triplett RN) Med Hx Psychiatric Disorders: No (06/05/2016 19:44:Mindy Triplett RN) Med Hx Hepatitis/Liver Disease: No (06/05/2016 19:44:Mindy Triplett RN) Med Hx Varicosities/Phlebitis: No (06/05/2016 19:44:Mindy Triplett RN) Med Hx Thyroid Dysfunction: No (06/05/2016 19:44:Mindy Triplett RN) Med Hx Trauma/Violence: No (06/05/2016 19:44:Mindy Triplett RN) Med Hx Blood Transfusion: No (06/05/2016 19:44:Mindy Triplett RN) Med Hx Pulmonary (Asthma,TB): No (06/05/2016 19:44:Mindy Triplett RN) Med Hx Breast: No (06/05/2016 19:44:Mindy Triplett RN) Med Hx INCINERATOR ATTENDANT Surgery: No (06/05/2016 19:44:Mindy Triplett RN) Med Hx Hospitalization/Surgery: No (06/05/2016 19:44:Mindy Triplett RN) Med Hx Anesthetic Complications: No (06/05/2016 19:44:Mindy Triplett RN) Med Hx Abnormal Pap Smear: No (06/05/2016 19:44:Mindy Triplett RN) Other Medical Diseases: No (06/05/2016 19:44:Mindy Triplett RN) Med Hx Significant Family Hx: No (06/05/2016 19:44:Mindy Triplett RN) Details of Med/Surg Hx: Depression, anxiety, sickle cell trait (06/05/2016 19:44:Mindy Triplett RN) INFECTIOUS HISTORY Inf Hx Gonorrhea: No (06/05/2016 19:44:Mindy Triplett RN) Inf Hx Chlamydia: No (06/05/2016 19:44:Mindy Triplett RN) Inf Hx Syphilis: No (06/05/2016 19:44:Mindy Triplett RN) Inf Hx HIV/AIDS: No (06/05/2016 19:44:Mindy Triplett RN) Inf Hx Human Papilloma Virus: No (06/05/2016 19:44:Mindy Triplett RN) Inf Hx Pt/Partner Genital Herpes: No (06/05/2016 19:44:Mindy Triplett RN) Inf Hx Tuberculosis/Exposure: No (06/05/2016 19:44:Mindy Triplett RN) Inf Hx Hepatitis B,C: No (06/05/2016 19:44:Mindy Triplett RN) Inf Hx Rash or Viral Illness: No (06/05/2016 19:44:Mindy Triplett RN) GENETIC HISTORY Gen Hx Age >=35 at NANCY: No (06/05/2016 19:44:Mindy Triplett RN) Gen Hx Thalassemia: No (06/05/2016 19:44:Mindy Triplett RN) Gen Hx Congenital Heart Defect: No (06/05/2016 19:44:Mindy Triplett RN) Gen Hx Neural Tube Defect: No (06/05/2016 19:44:Mindy Triplett RN) Gen Hx Down's Syndrome: No (06/05/2016 19:44:Mindy Triplett RN) Gen Hx Elijah-Sachs: No (06/05/2016 19:44:Mindy Triplett RN) Gen Hx Boni: No (06/05/2016 19:44:Mindy Triplett RN) Gen Hx Familial Dysautonomia: No (06/05/2016 19:44:Mindy Triplett RN) Gen Hx Sickle Cell Disease/Trait: Yes (06/05/2016 19:44:Mindy Triplett RN) Gen Hx Hemophilia/Blood Disorder: No (06/05/2016 19:44:Mindy Triplett RN) Gen Hx Muscular Dystrophy: No (06/05/2016 19:44:Mindy Triplett RN) Gen Hx Cystic Fibrosis: No (06/05/2016 19:44:Mindy Triplett RN) Gen Hx Huntingtons Chorea: No (06/05/2016 19:44:Mindy Triplett RN) Gen Hx Mental Retardation/Autism: No (06/05/2016 19:44:Mindy Triplett RN) Gen Hx Tested for Fragile X: No (06/05/2016 19:44:Mindy Triplett RN) Gen Hx Other Inher/Chromosomal: No (06/05/2016 19:44:Mindy Triplett RN) Gen Hx Maternal Metabolic DO: No (06/05/2016 19:44:Mindy Triplett RN) Gen Hx Pt Father or FOB Defect: No (06/05/2016 19:44:Mindy Triplett RN) Gen Hx Other Genetic History: No (06/05/2016 19:44:Mindy Triplett RN) Gen Hx Drugs/Meds since LMP: Yes (06/05/2016 19:44:Mindy Triplett RN) Gen Hx Medications: vitamins (06/05/2016 19:44:Mindy Triplett RN) Details of Genetic History: FOB - Grandmother MS (06/05/2016 19:44:Mindy Triplett RN)
--- NOTE | 2016-06-12 18:02 | L&D Current Admission ---
Current Admit Datetime Report Generated by CPN: 06/12/2016 18:00 ADMISSION INFORMATION Chief Complaint: Flank Pain (06/05/2016 20:05:Mindy Triplett, RN)
--- NOTE | 2016-06-12 18:57 | Non Stress Test Report ---
Non Stress Test Datetime Report Generated by CPN: 06/12/2016 18:57 DEMOGRAPHIC EGA NST: 34.2 INDICATION Indication for Study: Diabetes Mellitus; Ordered by Provider MONITORING Monitor Explained: Monitor Explained; Test Explained; Patient Verbalized Understanding Time on Monitor: 06/12/2016 17:41 Time off Monitor: 06/12/2016 18:51 NST Duration: 70 NST INTERVENTIONS NST Interventions: PO Hydration; Reposition Patient Physician Notified NST: Dr. Hadley BABY A: [id number] BABY A Contraction Frequency : occ FHR Baseline : 135 Accelerations : 15X15 Decelerations : None Variability : Moderate 6-25bpm NST Review: Meets Criteria for Reactive NST NST Review and Verified By : Glenn Mays RN NSEmiliano Results: Reactive NST REPORT Report Trigger: Send Report
== END 2016-06-12 18:57 | disposition home or self-care (01) ==
LOC: LC 17:18
PROVIDERS: ATTEND Obstetrics & Gynecology
PROC: 4A1HXCZ Monitoring of Products of Conception, Cardiac Rate, External Approach (ICD-10-PCS; principal; 2016-06-12)
DX: O24.419 Gestational diabetes mellitus in pregnancy, unspecified control (principal); Z3A.34 34 weeks gestation of pregnancy
CPT/HCPCS: 59025

== ENCOUNTER → 2016-07-10 | Outpatient (CLI) | payer MEDICAID ==
[2016-07-11 11:23] LABS: AMNISURE (ROM) NEGATIVE (NEGATIVE)
== END ==
LOC: LC 16:24
PROVIDERS: ATTEND Specialist
PROC: 4A1HXCZ Monitoring of Products of Conception, Cardiac Rate, External Approach (ICD-10-PCS; principal; 2016-07-10)
DX: Z36 Encounter for antenatal screening of mother (principal)
CPT/HCPCS: 59025; 84112

== ENCOUNTER 2016-07-22 19:40 | Inpatient (IN) | payer MEDICAID ==
[~2016-07-22 19:40] MED LIST: OXYTOCIN/NORMAL SALINE 1,000 ML IV PRN
[2016-07-22] MEDS ORDERED: RINGERS SOLUTION,LACTATED 300 ML IV ONE (19:58)
[2016-07-22] MEDS ORDERED: OXYTOCIN/NORMAL SALINE 1,000 ML IV PRN (19:58)
[2016-07-22] MEDS ORDERED: DINOPROSTONE 10 MG VAGINAL INSERT.SR PV PRN (19:58)
[2016-07-22 20:15] LABS: APPEARANCE,URINE SLIGHTLY-CLOUDY; BILIRUBIN,URINE NEGATIVE (NEGATIVE); GLUCOSE, URINE NEGATIVE (NEGATIVE); KETONES,URINE NEGATIVE (NEGATIVE); LEUKOCYTE ESTERASE,URINE TRACE (NEGATIVE); NITRITE,URINE NEGATIVE (NEGATIVE); PROTEIN,URINE NEGATIVE (NEGATIVE); URINE SPECIFIC GRAVITY 1.009; UROBILINOGEN,URINE NEGATIVE mg/dL (<2.0)
[2016-07-22 20:18] LABS: ABSOLUTE LYMPHOCYTES (AUTO) 1.9 10^3/uL (0.5-4.7); ABSOLUTE MONOCYTES (AUTO) 0.5 10^3/uL (0.1-1.4); ABSOLUTE NEUT (AUTO) 6.7 10^3/uL (1.7-8.2); BASOPHILS % (AUTO) 0.3 % (0-2); EOSINOPHILS % (AUTO) 0.3 % (0-6); HEMATOCRIT 40.4 % (36.0-47.0); HEMOGLOBIN 13.2 g/dL (12.0-15.5); HGB HCT DIFFERENCE -0.8; LYMPHOCYTES % (AUTO) 20.3 % (13-45); MEAN CORPUSCULAR HEMOGLOBIN 25.2 pg (27.0-33.4); MEAN CORPUSCULAR HGB CONC 32.7 g/dL (32.0-36.0); MEAN CORPUSCULAR VOLUME 77 fl (80-97); MONOCYTES % (AUTO) 5.9 % (3-13); RED BLOOD COUNT 5.24 10^6/uL (3.72-5.28); RED CELL DISTRIBUTION WIDTH 19.2 % (11.5-14.0); SEGMENTED NEUTROPHILS % (AUTO) 73.2 % (42-78); WHITE BLOOD COUNT 9.2 10^3/uL (4.0-10.5)
[2016-07-22 20:31] LABS: URINE BARBITURATES SCREEN NEGATIVE; URINE METHADONE SCREEN NEGATIVE; URINE OPIATES LOW NEGATIVE; URINE PHENCYCLIDINE SCREEN NEGATIVE
[2016-07-22] MEDS ORDERED: DINOPROSTONE 10 MG VAGINAL INSERT.SR ONE (22:41)
[2016-07-22] MEDS: RINGERS SOLUTION,LACTATED 1,000 ML IV PRN (22:51)
--- NOTE | 2016-07-23 01:33 | RADIOLOGY REPORT (SQ) ---
EXAM DESCRIPTION: U/S OB LIMITED COMPLETED DATE/TIME: 07/23/2016 1:20 am REASON FOR STUDY: PRESENTATION COMPARISON: 06/05/2016. TECHNIQUE: Limited transabdominal grayscale ultrasound for evaluation of specific requested obstetri haylee parameters. LIMITATIONS: None. FINDINGS: FHR: 140 beats per minute. PRESENTATION: Cephalic. OTHER: No other significant findings. IMPRESSION: LIMITED OBSTETRICAL ULTRASOUND WITH MEASURED PARAMETERS DELINEATED ABOVE. Trimester of : Third trimester - 28 weeks to delivery. TECHNICAL DOCUMENTATION: JOB ID: [id number] [employer]- All Rights Reserved
[2016-07-23] MEDS: RINGERS SOLUTION,LACTATED 1,000 ML IV PRN (10:06)
--- NOTE | 2016-07-23 12:04 | L&D Progress Notes ---
PROGRESS NOTES Datetime Report Generated by CPN: 07/23/2016 12:03 PROGRESS NOTE Impression: Reassuring Heart Rate Procedures: Sterile Vag Exam Plan: Induction Informed Consent Obtained: Vaginal Delivery Comment: Unsure if she is having ctx. Cervidil removed Pt may eat Then will start pitocin VAGINAL EXAM Dilatation: 1 Dilatation: 0 Effacement: 50 Effacement: 25 Station: -2 Station: -3 Contractions: 1-5 MEMBRANES Pooling: Negative Membranes: Intact Membranes: Intact FETUS A FHR - Baseline: 125 Monitoring: External US Variability: Moderate 6-25bpm Accelerations: 15X15 Decelerations: None FHR Category: Category I : 40.0 Estimated Weight (gm): 4000 Presentation: Vertex SIGNATURE SIGNATURE: [id number];[id number] SIGNATURE: [id number] SIGNATURE: [id number] Assignment: Eden Munroe MD Signature: with User ID: [email or web address] : with User ID: [email or web address]
[2016-07-23] MEDS ORDERED: OXYTOCIN/NORMAL SALINE 20 UNIT/1,000 ML RTUINJ ONE (12:50)
[2016-07-23] MEDS ORDERED: ACETAMINOPHEN 325 MG TABLET PO ONE (19:02)
[2016-07-23] MEDS ORDERED: ACETAMINOPHEN 325 MG TABLET ONE (19:05)
[2016-07-23] MEDS ORDERED: DINOPROSTONE 10 MG VAGINAL INSERT.SR ONE (21:34)
[2016-07-24] MEDS ORDERED: ZOLPIDEM TARTRATE 5 MG TABLET ONE (02:10)
[2016-07-24] MEDS ORDERED: ZOLPIDEM TARTRATE 5 MG TABLET PO ONE (02:11)
[2016-07-24] MEDS ORDERED: NALBUPHINE HCL INJ 10 MG/1 ML AMPULE INJ ONE (06:40)
[2016-07-24] MEDS ORDERED: NALBUPHINE HCL INJ 10 MG/1 ML AMPULE ONE (06:44)
--- NOTE | 2016-07-24 08:28 | L&D Progress Notes ---
PROGRESS NOTES Datetime Report Generated by CPN: 07/24/2016 08:27 PROGRESS NOTE Plan: Continue Present Management Vital Signs : Reviewed; Within Normal Limits Comment: Resting on left side, no c/o, reviewed strip, comfortable, hsb sleeping, discussed POC, obtain BS and then eat bkf , monitor strip closely FETUS A FHR - Baseline: 120 Monitoring: External US Variability: Minimal - Undetectable to <=5bpm Accelerations: 10X10 Decelerations: None FETUS C SIGNATURE: [id number];[id number] Assignment: Gerson Hadley DO Signature: with User ID: Adrianna : with User ID: Adrianna
[2016-07-24] MEDS ORDERED: MISOPROSTOL 0.2 MG TABLET PO ONE (09:30)
[2016-07-24] MEDS ORDERED: MISOPROSTOL 0.2 MG TABLET ONE (10:38)
[2016-07-24] MEDS ORDERED: EPHEDRINE SULFATE INJ 50 MG/1 ML AMPULE ONE (10:38)
[2016-07-24] MEDS ORDERED: LIDOCAINE 1% INJ-PF (10 MG/ML) 30 ML SDV ONE (10:39)
[2016-07-24] MEDS ORDERED: OXYTOCIN/NORMAL SALINE 0 UNIT/0 ML RTUINJ ONE (10:39)
[2016-07-24] MEDS ORDERED: FENTANYL/BUPIVACAINE/NS/PF 200 MCG/100 ML RTUINJ EPI ONE (10:39)
[2016-07-24] MEDS ORDERED: BUPIVACAINE HCL 0.25 % INJ/PF (2.5 MG/1 ML) 30 ML VIAL ONE (10:39)
--- NOTE | 2016-07-24 10:55 | L&D Progress Notes ---
PROGRESS NOTES Datetime Report Generated by CPN: 07/24/2016 10:55 PROGRESS NOTE Comment: VE = 5/100/vtx/-1, bulging BOW, FSE applied, breathing with UC's, waiting for UC's, Dr. Hadley aware of minimal and absent variability, , UC's q 2-4 min FETUS C SIGNATURE: [id number];[id number] Assignment: Gerson Hadley DO Signature: with User ID: [email or web address] : with User ID: Adrianna
--- NOTE | 2016-07-24 14:01 | L&D Progress Notes ---
PROGRESS NOTES Datetime Report Generated by [facility]: 07/24/2016 14:01 Vital Signs : Reviewed; Within Normal Limits Comment: VE- 5, swollen cervix, -2 station, comfortable with epidural, thick meconium, repositioned on left side FHR - Baseline: 130 Monitoring: Internal Scalp Electrode Variability: Moderate 6-25bpm Accelerations: 15X15 Decelerations: None Assignment: Gerson Hadley DO Signature: with User ID: [email or web address] : with User ID: [email or web address]
[2016-07-24] MEDS ORDERED: DIPHENHYDRAMINE HCL 50 MG/ML VIAL ONE ×2 (14:22→14:59)
[2016-07-24] MEDS ORDERED: DIPHENHYDRAMINE HCL 50 MG/ML VIAL IV ONE ×2 (14:25→15:00)
[2016-07-24] MEDS ORDERED: CEFAZOLIN 2 GM/D5W RTU 2 GM/50 ML RTUPB IV ONE (16:03)
[2016-07-24] MEDS ORDERED: CITRIC ACID/SODIUM CITRATE ORAL SOLN 15 ML UDCUP ONE (16:03)
[2016-07-24] MEDS ORDERED: LIDOCAINE 2% INJ-PF (20 MG/ML) 10 ML AMPUL ONE ×2 (16:04→16:47)
[2016-07-24] MEDS ORDERED: OXYTOCIN/NORMAL SALINE 20 UNIT/1,000 ML RTUINJ ONE (16:24)
[2016-07-24] MEDS ORDERED: MIDAZOLAM 2 MG/2 ML INJ ONE (16:24)
[2016-07-24] MEDS ORDERED: OXYTOCIN 10 UNIT/ML VIAL ONE (16:24)
[2016-07-24] MEDS ORDERED: MORPHINE SULFATE 10 MG/ML INJ ONE (16:25)
[2016-07-24] MEDS ORDERED: METHYLERGONOVINE MALEATE INJ/PF 0.2 MG/1 ML AMPULE ONE (16:56)
[2016-07-24] MEDS ORDERED: OXYTOCIN/NORMAL SALINE 20 UNIT/1,000 ML RTUINJ INJ PRN (17:32)
[2016-07-24] MEDS ORDERED: ACETAMINOPHEN 325 MG TABLET PO PRN (17:32)
[2016-07-24] MEDS ORDERED: DIPH/PERTUSS(ACELL)/TETANUS VAC/PF 0.5 ML SYR (>=10YO) IM PRN ×2 (17:32→19:57)
[2016-07-24] MEDS ORDERED: SIMETHICONE 80 MG TAB.CHEW PO PRN (17:32)
[2016-07-24] MEDS ORDERED: MEASLES,MUMPS&RUBELLA VACC/PF 0.5 ML VIAL SUBCUT PRN ×2 (17:32→19:57)
[2016-07-24] MEDS ORDERED: HYDROMORPHONE HCL INJ/PF 2 MG/ML AMPULE IV PRN (17:32)
[2016-07-24] MEDS ORDERED: PROMETHAZINE HCL INJ 25 MG/1 ML VIAL IM PRN (17:32)
[2016-07-24] MEDS ORDERED: OXYCODONE-ACETAMINOPHEN 5-325 MG TABLET PO PRN (17:32)
[2016-07-24] MEDS ORDERED: ONDANSETRON HCL INJ/PF 4 MG/2 ML SDV IV PRN (17:49)
[2016-07-24] MEDS ORDERED: ONDANSETRON 4 MG TAB.RAPDIS PO PRN (17:49)
[2016-07-24] MEDS ORDERED: ACETAMINOPHEN 100 ML IV ONE ×2 (17:53→18:00)
[2016-07-24] MEDS ORDERED: KETOROLAC TROMETHAMINE INJ/PF 30 MG/1 ML SDV ONE (18:40)
--- NOTE | 2016-07-24 19:37 | Admission Physical ---
Datetime Report Generated by CPN: 07/24/2016 19:37 CURRENT ADMISSION Chief Complaint: Scheduled Induction of Labor Indication for Induction: Maternal Diabetes Admit Plan: Admit to Unit; Initiate Labor Induction Protocol ALLERGIES Medication Allergies: No Medication Allergies: No Known Allergies (07/22/2016) Medication Allergies: No Known Allergies (01/20/2015) Latex: No Latex Allergies Food Allergies: N/A Environmental Allergies: N/a OBSTETRICAL HISTORY EDC: 07/22/2016 00:00 : 1 Para: 0 Term: 0 : 0 SAB: 0 IAB: 0 Ectopic: 0 Livin Cesareans: 0 VBACs: 0 Multiple Births: 0 Gestational Diabetes: Yes Rh Sensitization: No Incompetent Cervix: No KRISTAL: No Infertility: No ART Treatment: No Uterine Anomaly: No IUGR: No Hx Previous C/S: No Macrosomia: No Hx Loss/Stillborn: No PIH: No Hx : No Placenta Previa/Abruption: No Depression/PP Depression: No PTL/PROM: No Post Hemorrhage: No Current Procedures: Ultrasound Obstetrical History Comments: G1 - Current SEE RECORDS Alcohol: No Marijuana : No Cocaine: No Other Illicit Drugs: No Cigarettes: Never Smoker. [id number] MEDICAL HISTORY Diabetes: Yes Diabetes Type: Gestational Diabetes Blood Transfusion: No Pulmonary Disease (Asthma, TB): No Breast Disease: No Hypertension: No Pmp Surgery: No Heart Disease: No Hosp/Surgery: No Autoimmune Disorder: No Anesthetic Complications: No Kidney Disease: No Abnormal Pap Smear: No Neuro/Epilepsy: No Psychiatric Disorders: No Other Medical Diseases: No Hepatitis/Liver Disease: No Significant Family History: No Varicosities/Phlebitis: No Trauma/Violence : No Thyroid Dysfunction: No Medical History Comments: Depression, anxiety, sickle cell trait INFECTIOUS HISTORY Gonorrhea: No Genital Herpes: No Chlamydia: No Tuberculosis: No Syphilis: No Hepatitis: No HIV/AIDS Exposure: No Rash or Viral Illness: No HPV: No PHYSICAL EXAM General: Normal HEENT: Normal Neurologic: Normal Thyroid: Normal Heart: Normal Lungs: Normal Breast: Normal Back: Normal Abdomen: Normal Genitourinary Exam: Normal Extremities: Normal DTRs: Normal Pelvic Type: Adequate Vital Signs: Reviewed; Within Normal Limits VAGINAL EXAM Dilatation: 1 Dilatation: 0 Effacement: 50 Effacement: 25 Station: -2 Station: -3 Contraction Comments: 1-5 MEMBRANES Pooling: Negative Membranes: Intact Membranes: Intact FETUS A EGA: 40.0 Monitoring: External US FHR- Baseline: 120 Variability: Moderate 6-25bpm Accelerations: 15X15 Decelerations: None FHR Category: Category I Estimated Weight (gm): 4000 Presentation: Vertex PLANS FOR LABOR AND DELIVERY Labor and Delivery: None Pain Management: Epidural Feeding Preference: Both Benefit of Breast Feed Discussed: Yes Circumcision: Yes INFORMED CONSENT Informed Consent Obtained: Vaginal Delivery Signature: with User ID: [email or web address]
[2016-07-24] MEDS ORDERED: ACETAMINOPHEN 650 MG SUPP.RECT PR PRN (19:57)
[2016-07-24] MEDS ORDERED: DIBUCAINE 1% OINTMENT 28 GM TP PRN (19:57)
[2016-07-24] MEDS ORDERED: PSEUDOEPHEDRINE HCL 30 MG TABLET PO PRN (19:57)
[2016-07-24] MEDS ORDERED: PROMETHAZINE HCL 25 MG TABLET PO PRN (19:57)
[2016-07-24] MEDS ORDERED: BENZOCAINE/MENTHOL AEROSOL SPRAY 56 ML TOP PRN (19:57)
[2016-07-24] MEDS ORDERED: NA PHOS,M-B/NA PHOS,DI-BA (ADULT) 133 ML ENEMA PR PRN (19:57)
[2016-07-24] MEDS ORDERED: PROMETHAZINE HCL 25 MG SUPP.RECT PR PRN (19:57)
[2016-07-24] MEDS ORDERED: PROMETHAZINE HCL INJ 25 MG/1 ML VIAL IV PRN (19:57)
[2016-07-24] MEDS ORDERED: MAGNESIUM HYDROXIDE SUSP 30 ML UDCUP PO PRN (19:57)
[2016-07-24] MEDS ORDERED: GLYCERIN/WITCH HAZEL LEAF 1 EACH MED..PAD TP PRN (19:57)
[2016-07-24] MEDS ORDERED: DIPHENHYDRAMINE HCL 25 MG CAPSULE PO PRN (19:57)
[2016-07-24] MEDS ORDERED: ACETAMINOPHEN WITH CODEINE #3 TABLET PO PRN ×2 (19:57)
[2016-07-24] MEDS ORDERED: ZOLPIDEM TARTRATE 5 MG TABLET PO PRN (19:57)
[2016-07-24] MEDS: DOCUSATE SODIUM 100 MG CAPSULE PO SCH (21:29)
[2016-07-24] MEDS: FAMOTIDINE 20 MG TABLET PO SCH (22:37)
[2016-07-25] MEDS: KETOROLAC TROMETHAMINE INJ/PF 30 MG/1 ML SDV IV SCH ×2 (01:08→09:36)
[2016-07-25] MEDS: OXYCODONE-ACETAMINOPHEN 5-325 MG TABLET PO PRN ×4 (01:09→17:57)
[2016-07-25 06:59] LABS: HEMATOCRIT 28.8 % (36.0-47.0); HEMOGLOBIN 9.6 g/dL (12.0-15.5); MEAN CORPUSCULAR HGB CONC 33.4 g/dL (32.0-36.0); MEAN CORPUSCULAR VOLUME 78 fl (80-97); RED BLOOD COUNT 3.71 10^6/uL (3.72-5.28); RED CELL DISTRIBUTION WIDTH 19.2 % (11.5-14.0); WHITE BLOOD COUNT 12.3 10^3/uL (4.0-10.5)
[2016-07-25] MEDS: PRENATAL VITAMIN W-O CA NO5/FE FUMARATE/FA CAPSULE PO SCH (09:36)
[2016-07-25] MEDS: DOCUSATE SODIUM 100 MG CAPSULE PO SCH ×2 (09:36→17:03)
[2016-07-25] MEDS: FAMOTIDINE 20 MG TABLET PO SCH ×2 (09:47→21:14)
[2016-07-25] MEDS ORDERED: FERROUS SULFATE 325 MG TABLET PO SCH (10:00)
[2016-07-25] MEDS ORDERED: SENNOSIDES/DOCUSATE 8.6-50 MG 1 EACH TABLET PO SCH (10:00)
[2016-07-25] MEDS ORDERED: PRENATAL VITAMIN W-O CA NO5/FE FUMARATE/FA CAPSULE PO SCH (10:00)
[2016-07-25] MEDS ORDERED: DOCUSATE SODIUM 100 MG CAPSULE PO SCH (10:00)
--- NOTE | 2016-07-25 12:16 | PDOC PROGRESS REPORT ---
Subjective-OB Subjective: Post Delivery Day:1 21 year old s/p primary delivery day 1. Ambulating and voiding without difficulty and passing gas. Breast and bottle feeding.Denies any needs at this time Physical Exam (OB) Vital Signs: Temp Pulse Resp BP Pulse Ox 98.6 F 109 H 20 114/68 99 07/25/16 07:54 07/25/16 07:54 07/25/16 07:54 07/25/16 07:54 07/25/16 07:54 Intake & Output 07/24/16 07/25/16 07/26/16 06:59 06:59 06:59 Intake Total 1850 Output Total 1100 Balance 750 - General General Appearance: Appears well In distress: None - Dressing Removed: No Incision: Dressing - Lochia Lochia Amount: Small 10-25 ml Lochia Color: Rubra/Red - Abdomen Description: Soft Hernia Present: No Fundal Description: Firm, Midline Fundal Height: u/u - u/2 - Respiratory Respiratory Status: No respiratory distress - Extremities Upper extremity: Normal inspection Lower extremities: Normal inspection - Neurological Cognition: Normal Orientation: AAOx4 - Psychological Associated symptoms: Normal affect, Normal mood Objective-Diagnostic Laboratory: 07/25/16 06:45 07/25/16 06:45 WBC 12.3 H RBC 3.71 L Hgb 9.6 L D Hct 28.8 L MCV 78 L MCH 26.0 L MCHC 33.4 RDW 19.2 H Plt Count 175 Assessment and Plan(PN) - Assessment and Plan (1) Status post primary low transverse section Is this a current diagnosis for this admission?: YesPlan: continue to ambulate today, continue stay (2) Anemia Qualifiers: Other causes of anemia: other cause, not classified Is this a current diagnosis for this admission?: YesPlan: iron supplementation (3) Gestational diabetes mellitus (GDM) Qualifiers: Gestational diabetes mellitus control: diet-controlled Is this a current diagnosis for this admission?: YesPlan: recheck at pospartum visit - Time Spent with Patient Time with patient: 15-25 minutes Medications reviewed and adjusted accordingly: Yes - Disposition Anticipated Discharge: Home Within: within 24 hours
[2016-07-25] MEDS: IBUPROFEN 800 MG TABLET PO SCH ×3 (13:02→23:29)
[2016-07-25] MEDS ORDERED: IBUPROFEN 800 MG TABLET PO SCH ×2 (14:00→18:00)
[2016-07-26] MEDS: IBUPROFEN 800 MG TABLET PO SCH ×2 (05:09→13:27)
[2016-07-26 08:46] VITALS: BP 128/79
--- NOTE | 2016-07-26 09:50 | PDOC DISCHARGE SUMMARY ---
Final Diagnosis Discharge Date: 07/26/16 - Final Diagnosis (1) Anemia Is this a current diagnosis for this admission?: Yes (2) Gestational diabetes mellitus (GDM) Is this a current diagnosis for this admission?: Yes (3) Status post primary low transverse section Is this a current diagnosis for this admission?: Yes Discharge Data - Discharge Medication Home Medications: Pnv No.122/Iron/Folic Acid [ Multi Tablet] 1 each PO DAILY 06/05/16 Docusate Sodium [Colace 100 mg Capsule] 100 mg PO BID #60 capsule 07/26/16 Ferrous Sulfate [Feosol 325 mg Tablet] 325 mg PO DAILY #30 tab 07/26/16 Ibuprofen [Motrin 800 mg Tablet] 800 mg PO Q6 #60 tablet 07/26/16 Oxycodone HCl/Acetaminophen [Percocet 5-325 mg Tablet] 2 tab PO Q4HP PRN #30 tablet 07/26/16 Gestational Age: 40 Reason(s) for Admission: Induction of Labor, Gestional Diabetes Procedures: NST Intrapartum Procedure(s): : Low Cervical, Transverse - Data Baby 1 Male at 1 minute: 8 at 5 minutes: 9 Weight: 3260 kg Home with Mother: Yes Complications: No - Diagnosis Test Laboratory: Temp Pulse Resp BP Pulse Ox 98.1 F 100 16 128/79 H 98 07/26/16 08:09 07/26/16 08:09 07/26/16 08:09 07/26/16 08:09 07/26/16 08:09 07/22/16 07/22/16 07/25/16 19:55 20:00 06:45 RBC 5.24 3.71 L Hgb 13.2 9.6 L D Hct 40.4 28.8 L Urine Opiates Screen NEGATIVE - Discharge information/Instructions Discharge Activity: Activity As Tolerated, Balance Activity w/Rest, No Lifting Over 10 Pounds, Pelvic Rest, No tub bath Discharge Diet: Regular Disposition: HOME, SELF-CARE Follow up with: [facility] in: 1, Weeks
[2016-07-26] MEDS: DOCUSATE SODIUM 100 MG CAPSULE PO SCH (11:15)
[2016-07-26] MEDS: FAMOTIDINE 20 MG TABLET PO SCH (11:15)
[2016-07-26] MEDS: PRENATAL VITAMIN W-O CA NO5/FE FUMARATE/FA CAPSULE PO SCH (11:15)
[2016-07-26] MEDS: OXYCODONE-ACETAMINOPHEN 5-325 MG TABLET PO PRN (11:16)
--- NOTE | 2016-08-05 13:46 | Delivery Summary ---
Del Sum A-C Datetime Report Generated by CPN: 08/05/2016 13:45 DELIVERY PERSONNEL DELIVERY PERSONNEL: [id number] Delivery Doctor:: Gerson Hadley DO Nurse Traffic Operator Certified:: Cele Herrera CNM Anesthesiologist:: Gerardo Guerrero MD RESTAURANT CASHIER:: Yonny Escudero CRNA Labor and Delivery Nurse:: Parrish Stanley RNcold press operator Nurse:: Holly Cervantes RN Car Ferrier:: Parrish Stanley RN Nursery Nurse:: Tierra Hughes RN Chief Of Police/JUDGE: [place] Chief Of Police/JUDGE: Denilson Dunn GM MOBILE MATERNAL INFORMATION Delivery Anesthesia: Epidural Medications After Delivery: Pitocin Bolus-Please Comment; Methergine 0.2mg IM Estimated Blood Loss (ml): 700 Maternal Complications: Other Other Maternal Complications: FTOL LABOR SUMMARY EDC: 07/22/2016 00:00 No. Babies in Womb: 1 Attempted: No Labor Anesthesia: Epidural LABOR INFORMATION Reason for Induction: Maternal Diabetes Onset of Labor: 07/24/2016 09:40 Cervical Ripening Agents: Cervidil Other Ripening Agents: cervidil x2 Oxytocin: Induction Group B Beta Strep: negative Antibiotics # of Doses: 0 Steroids Given: None Reason Steroids Not Administered: Not Applicable MEMBRANES Membranes Rupture Method: Artificial Rupture of Membranes: 07/24/2016 10:50 Length of Rupture (hr): 5.98 Amniotic Fluid Color: Moderate Meconium Amniotic Fluid Amount: Small Amniotic Fluid Odor: None STAGES OF LABOR Stage 3 hr: 0 Stage 3 min: 1 Total Time in Labor hr: 7 Total Time in Labor min: 10 VAGINAL DELIVERY Episiotomy: None Laceration Extension: N/A Laceration Type: None CSECTION DELIVERY Primary Indication: Failed Induction Secondary Indication: Other Other Secondary Indication: FAILURE TO PROGRESS CSection Urgency: Non-Scheduled CSection Incidence: Primary Labor: Labor Elective: Nonelective CSection Incision: Lower Uterine Transverse BABY A INFORMATION Delivery Date/Time: 07/24/2016 16:49 Method of Delivery: Born in Route : No : N/A Forceps: N/A Vacuum Extraction: N/A Shoulder Dystocia : No PRESENTATION/POSITION BABY A Presentation: Cephalic Cephalic Presentation: Vertex Breech Presentation: N/A PLACENTA INFORMATION BABY A Placenta Delivery Time : 07/24/2016 16:50 Placenta Method of Delivery: Manual Removal Placenta Status: Delivered SCORES BABY A Heart Rate 1 min: >100 bpm Resp Effort 1 min: Good Cry Reflex Irritability 1 min: Cough or Sneeze or Pulls Away Muscle Tone 1 min: Active Motion Color 1 min: Blue/Pale Resuscitation Effort 1 min: Tactile Stimulation SCORE 1 MIN: 8 Heart Rate 5 min: >100 bpm Resp Effort 5 min: Good Cry Reflex Irritability 5 min: Cough or Sneeze or Pulls Away Muscle Tone 5 min: Active Motion Color 5 min: Body [place], Extremities Blue SCORE 5 MIN: 9 INFANT INFORMATION BABY A Gestational Age at Delivery: 40.2 Gestational Status: Full Term- 39- 40.6 Weeks Infant Outcome : Liveborn Condition : Stable Infant Sex: Male IDENTIFICATION BABY A Verification Date/Time: 07/24/2016 17:03 ID Band Number: [id number] Mother's Name Verified: Yes RN Verifying : D BROWN, RN Additional Verifying Personnel: BL ROULUND, RN WEIGHT/LENGTH BABY A Birthweight (gm): 3260 Weight (lb): 7 Infant Weight (oz): 3 Infant Length (in): 19.25 Infant Length (cm): 48.90 CORD INFORMATION BABY A No. Cord Vessels: 3 Nuchal Cord : N/A Cord Blood Taken: Yes-For Eval (Mom's Blood Type - or O+) Suction: None ASSESSMENT BABY A Complications: Meconium Skin to Skin: Yes Infant Care By: Jes HUGHES RN Transferred To: [facility]
--- NOTE | 2016-09-10 10:05 | OPERATIVE REPORT E ---
Operative Report NAME: OMID COLON : 1995 AGE: 21Y DATE OF SURGERY: 07/24/2016 ROOM: 212 PREOPERATIVE DIAGNOSES: 1. A 40-week intrauterine . 2. Failed induction. POSTOPERATIVE DIAGNOSES: 1. A 40-week intrauterine . 2. Failed induction. SURGEON: Gerson Hadley D.O. PROCEDURE: Primary low transverse section. ANESTHESIA: Epidural. COMPLICATIONS: None. PATHOLOGY: Placenta. ESTIMATED BLOOD LOSS: 600 mL. FINDINGS: 1. Viable male infant at 1649 hours on 07/24/2016. Apgars 8 at one, 9 at five. 2. Normal bilateral-appearing fallopian tubes and ovaries. DESCRIPTION OF PROCEDURE: The patient was taken to the operating room where her epidural anesthesia was found to be working adequately. She was then placed in the dorsal supine position with a leftward tilt upon the operating room table. She was then prepped and draped in a normal sterile fashion. A scalpel was the used to make a Pfannenstiel skin incision. The skin incision was carried down through the subcutaneous tissue to the layer of the fascia. Fascia was then incised in the midline. Fascial incision was then extended bilaterally using Bovie cautery. Superior fascial edge was grasped with Jasbir clamps, elevated, and the rectus muscle was dissected off sharply and bluntly. Attention was then turned to the inferior fascial edge, which was grasped with Jasbir clamps, elevated, and the rectus muscles dissected off sharply and bluntly. Rectus muscles were then in the midline, peritoneum identified and entered bluntly with the surgeon's hand. The bladder blade was inserted. A scalpel was then used to make a low transverse hysterotomy incision. The infant was delivered through this incision without difficulty and atraumatically. Nose and mouth were suctioned. The cord was clamped and cut and the was handed off to the awaiting nurses. Cord blood was obtained. The placenta was then manually removed from the uterus. The uterus was then exteriorized and cleared of all clots and debris. The hysterotomy incision was then reapproximated using 2 layers of 1-0 Vicryl in running, locking fashion. Following closure of the second layer, excellent hemostasis was noted. The uterus was then returned to the abdomen. The bilateral pericolic gutters were irrigated and cleared of all clots and debris. Again, the hysterotomy incision was reinspected and found to have excellent hemostasis. Rectus muscles were then reapproximated using 1-0 Vicryl interrupted sutures. The fascia was then closed using 1-0 Vicryl in a running, non-locking fashion. The subcutaneous space was made hemostatic using Bovie cautery. The skin was then closed with absorbable jeannie, covered with an OpSite and then with a pressure dressing. At this point in time, the procedure was terminated. All sponge, lap, and needle counts were correct x2. The patient tolerated the procedure well. The patient was taken to the recovery room in stable condition. DICTATING PHYSICIAN: Gerson Hadley DO [id number] PHY#: [id number] ID: [id number] JOB#: [id number] ACCT: [id number] cc:Gerson Hadley D.O. >
== END 2016-07-26 17:00 | disposition home or self-care (01) | DRG 766 ==
LOC: LR 19:40 → 2N 07-24 19:35
PROVIDERS: ADMIT Obstetrics & Gynecology; ATTEND Obstetrics & Gynecology
PROC: 4A1HXCZ Monitoring of Products of Conception, Cardiac Rate, External Approach (ICD-10-PCS; 2016-07-22)
PROC: 10D00Z1 Extraction of Products of Conception, Low, Open Approach (ICD-10-PCS; principal; 2016-07-24)
PROC: 3E0P7GC Introduction of Other Therapeutic Substance into Female Reproductive, Via Natural or Artificial Opening (ICD-10-PCS; 2016-07-24)
DX: O61.0 Failed medical induction of labor (principal); O24.420 Gestational diabetes mellitus in childbirth, diet controlled; O99.02 Anemia complicating childbirth; D50.9 Iron deficiency anemia, unspecified; O77.0 Labor and delivery complicated by meconium in amniotic fluid; Z3A.40 40 weeks gestation of pregnancy; Z37.0 Single live birth
CPT/HCPCS: 1961; 36415; 76815; 80307; 81005; 82962; 85025; 85027; 86592; 86850; 86900; 86901; 88307; 94760; 94799; J0131; J0690; J1170; J1200; J1885; J2210; J2250; J2270; J2300; J2590; J3490

== ENCOUNTER 2016-07-27 23:22 | Emergency (ER) | payer MEDICAID ==
[2016-07-28] MEDS ORDERED: ACETAMINOPHEN 325 MG TABLET PO ONE (05:02)
--- NOTE | 2016-07-28 06:26 | ER Document Report ---
ED General - General Chief Complaint: Post Surgical Pain Stated Complaint: PAIN FROM INCISION SITE Time Seen by Provider: 07/28/16 06:02 TRAVEL OUTSIDE OF THE U.[place]. IN LAST 30 DAYS: No - HPI Patient complains to provider of: Csection pain Notes: Patient presents today for evaluation of her . Patient recently had a here at [facility] states that she cannot see the therefore is concerned because whenever she calls her last she is having pain. Patient also has other generalized GLOVE CUFFER question such as taking Percocet and breast-feeding and was worried to drink whenever the pain go away. Denies fever chills nausea vomiting - Related Data Allergies/Adverse Reactions: No Known Allergies Allergy (Verified 07/28/16 05:38) Past Medical History - Social History Smoking Status: Never Smoker Chew tobacco use (# tins/day): No Frequency of alcohol use: None Drug Abuse: None Family History: Reviewed & Not Pertinent, Other - sickle cell Renal/ Medical History: Denies: Hx Peritoneal Dialysis Psychiatric Medical History: Reports: Hx Depression Past Surgical History: Reports: Hx Section - Immunizations Immunizations up to date: Yes Hx Diphtheria, Pertussis, Tetanus Vaccination: Yes Review of Systems - Review of Systems Constitutional: Other - Evaluation of EENT: No symptoms reported Cardiovascular: No symptoms reported Respiratory: No symptoms reported Gastrointestinal: No symptoms reported Genitourinary: No symptoms reported Female Genitourinary: No symptoms reported Musculoskeletal: No symptoms reported Skin: No symptoms reported Hematologic/Lymphatic: No symptoms reported Neurological/Psychological: No symptoms reported Physical Exam - Vital signs Vitals: Temp Pulse Resp BP Pulse Ox 98.3 F 102 H 20 129/87 H 100 07/28/16 00:36 07/28/16 00:36 07/28/16 00:36 07/28/16 00:36 07/28/16 00:36 Interpretation: Normal - General General appearance: Appears well, Alert - HEENT Head: Normocephalic, Atraumatic Eyes: Normal Pupils: PERRL - Respiratory Respiratory status: No respiratory distress Chest status: Nontender Breath sounds: Normal Chest palpation: Normal - Cardiovascular Rhythm: Regular Heart sounds: Normal auscultation Murmur: No - Abdominal Inspection: Normal Distension: No distension Bowel sounds: Normal Tenderness: Nontender Organomegaly: No organomegaly Notes: scar present signs of infection - Back Back: Normal, Nontender - Extremities General upper extremity: Normal inspection, Nontender, Normal color, Normal ROM , Normal temperature General lower extremity: Normal inspection, Nontender, Normal color, Normal ROM , Normal temperature, Normal weight bearing. No: Constantin's sign - Neurological Neuro grossly intact: Yes Cognition: Normal Orientation: AAOx4 Fidelia Coma Scale Eye Opening: Spontaneous [place] Coma Scale Verbal: Oriented Harts Coma Scale Motor: Obeys Commands Harts Coma Scale Total: 15 Speech: Normal Motor strength normal: LUE, RUE, LLE, RLE Sensory: Normal - Psychological Associated symptoms: Normal affect, Normal mood - Skin Skin Temperature: Warm Skin Moisture: Dry Skin Color: Normal Course - Re-evaluation Re-evalutation: 07/28/16 14:31 Educated patient about care of herself and her child. scar O shows no signs of infection. Patient will be discharged home to follow- up with her primary care physician and GLOVE CUFFER - Vital Signs Vital signs: Temp Pulse Resp BP Pulse Ox 98.4 F 99 16 130/90 H 100 07/28/16 07:52 07/28/16 07:52 07/28/16 07:52 07/28/16 07:52 07/28/16 07:52 - Laboratory Laboratory results interpreted by me: 07/28/16 06:39 POC Glucose 124 H Discharge - Discharge Clinical Impression: c section pain Condition: Good Disposition: HOME, SELF-CARE Additional Instructions: Your evaluation today reveals good healing of your scar. There is no signs of infection or seroma. Please continue wound care as directed by her OB/ CATCH BASIN CLEANER. He may take the Percocet prescribed it is recommend that if he did produce any breast milk to dump that breast milk after taking the Percocet. YOu may also take Tylenol Motrin for your pain control. Make sure that you follow-up with your GLOVE CUFFER Referrals: KAYLA WHITNEY MD [Primary Care Provider] - Follow up as needed
[2016-07-28 07:54] VITALS: BP 130/90
== END 2016-07-28 07:54 | disposition home or self-care (01) ==
LOC: ER 23:22
DX: G89.18 Other acute postprocedural pain (principal)
CPT/HCPCS: 99283; 82962; J3490

== ENCOUNTER 2016-11-26 19:39 | Emergency (ER) | payer MEDICAID ==
[2016-11-26 20:08] LABS: ABSOLUTE LYMPHOCYTES (AUTO) 2.1 10^3/uL (0.5-4.7); ABSOLUTE MONOCYTES (AUTO) 0.3 10^3/uL (0.1-1.4); ABSOLUTE NEUT (AUTO) 3.6 10^3/uL (1.7-8.2); BASOPHILS % (AUTO) 0.7 % (0-2); EOSINOPHILS % (AUTO) 0.6 % (0-6); HEMATOCRIT 34.9 % (36.0-47.0); HEMOGLOBIN 11.8 g/dL (12.0-15.5); HGB HCT DIFFERENCE 0.5; LYMPHOCYTES % (AUTO) 34.5 % (13-45); MEAN CORPUSCULAR HEMOGLOBIN 25.7 pg (27.0-33.4); MEAN CORPUSCULAR HGB CONC 33.9 g/dL (32.0-36.0); MEAN CORPUSCULAR VOLUME 76 fl (80-97); MONOCYTES % (AUTO) 4.7 % (3-13); RED BLOOD COUNT 4.61 10^6/uL (3.72-5.28); RED CELL DISTRIBUTION WIDTH 17.5 % (11.5-14.0); SEGMENTED NEUTROPHILS % (AUTO) 59.5 % (42-78)
[2016-11-26 20:27] LABS: ALANINE AMINOTRANSFERASE 43 U/L (9-52); ALKALINE PHOSPHATASE 88 U/L (38-126); ANION GAP 9 (5-19); ASPARTATE AMINO TRANSFERASE 25 U/L (14-36); BILIRUBIN,DIRECT 0.3 mg/dL (0.0-0.4); BILIRUBIN,TOTAL 0.6 mg/dL (0.2-1.3); BLOOD UREA NITROGEN 9 mg/dL (7-20); CALCIUM 9.6 mg/dL (8.4-10.2); CARBON DIOXIDE 23 mmol/L (22-30); CHLORIDE 108 mmol/L (98-107); CREATININE RESULT 0.79 mg/dL (0.52-1.25); GLUCOSE 111 mg/dL (75-110); POTASSIUM 4.1 mmol/L (3.6-5.0); SODIUM 139.7 mmol/L (137-145); TOTAL PROTEIN 7.2 g/dL (6.3-8.2)
[2016-11-26 20:30] LABS: ALCOHOL < 10 mg/dL (NONE DETECTED)
--- NOTE | 2016-11-26 20:35 | ER Document Report ---
ED Psych Disorder / Suicide - General Information source: Relative - brayan is bedside, [facility] Records - HPI Patient complains to provider of: Suicidal ideation, Self injury Onset: Other Onset was: Gradual Suicide Risk Factors: Depressed, Other mental health dx. - pt states she is concerned for depression Situational problems related to: Parent Normal mood: No Associated symptoms: Anxious, Depressed, Flat affect Similar symptoms previously: Yes - hx dating back to 2010 Recently seen / treated by doctor: No <DOLLY STOUT - Last Filed: 11/27/16 11:38> - General Mode of Arrival: Ambulatory Information source: Patient TRAVEL OUTSIDE OF THE [place] IN LAST 30 DAYS: No <ELISSA AGUIAR - Last Filed: 11/30/16 22:06> - General Chief Complaint: Suicidal Ideation Stated Complaint: SUICIDAL IDEATION Time Seen by Provider: 11/26/16 20:35 Notes: 21 yo female struggling with depression and anxiety since 2010, building up over time. It was rough at home before, during, after -had to have emergency c section. She was told that she was showing signs of PP depression- [facility]. Baby is fine, "I'm fine around him, but just not anyone else". Arguing alot with brayan. Bad relationship with mom that she lives with. Feeling like "I'm a failure". [place] cornered, mind racing, axiety attack, couldn' t think, wanted "everything to stop", "afraid that baby would be taken away", "mother made me feel bad about taking it so I stopped." secretly self harming for 2 days- cutting tops of both thighs. Ran out of Zoloft 50mg 1 month ago- it did help alot but got drowsy and sleepy with it. Today was a breaking point, I have been having suicidal thoughts past few days, wanting to and not exist. Today had a plan Cut both volar forearms with broken razor in order to . Evelio called the ambulance. Does not want to be here. (ELISSA AGUIAR) - [facility] Notes: Patient is a 21 year old female who presented last night due to increase in depression, self injury with suicidal ideations. Patient states she is 4 months and her depressive symptoms are overwhelming. Patient states she was previously prescribed Zoloft, which she states helped, but made her groggy and she was concerned about caring for the baby while groggy. Patient states her anxiety and depressive symptoms, to include tearfulness, feeling sad most of the day, poor sleep, and anxiety have become overwhelming. Patient states stress at home with chronic conflict with her mother have exasperated her symptoms. Patient states her brayan, who is bedside, works at nights but is emotionally supportive. Patient states she became concerned because over the past few days she has started thinking about committing suicide, and feeling like she was a burden on fisubha, and not a good mother. Patient states she was cutting on her arm last night and her fiance found her in the bedroom. Brayan is bedside and states he is concerned as her depression has been worsening. Brayan states the baby is being cared for by patient's mother and he will be there as well when not at work. He states his concern is that the patient get the help she needs to feel better. Brayan talked about the patient being a good mother. Patient is A&O. Mood is depressed with flat affect. Patient endorses suicidal ideations. Patient adamant that she is not having thoughts of harming anyone, specifically her baby. Patient denies A/V H; delusions not noted. Thought processes were organized. No evidence of irrational thoughts regarding harming the baby. Major Depressive Disorder, Recurrent, Moderate Patient is recommended to remain under IVC for further evaluation and placement in a psychiatric facility. Patient endorses suicidal ideations. I consulted with Dr. Cyr in regards to the care and management of this patient. (DOLLY STOUT) - Related Data Allergies/Adverse Reactions: No Known Allergies Allergy (Verified 07/28/16 05:38) Home Medications: Current Home Medications No Home Medications 11/26/16 [History] Past Medical History - Social History Smoking Status: Never Smoker Frequency of alcohol use: None Drug Abuse: None Family History: Reviewed & Not Pertinent, Other - sickle cell Patient has suicidal ideation: Yes Patient has homicidal ideation: No Renal/ Medical History: Denies: Hx Peritoneal Dialysis Psychiatric Medical History: Reports: Hx Depression Past Surgical History: Reports: Hx Section - Immunizations Immunizations up to date: Yes Hx Diphtheria, Pertussis, Tetanus Vaccination: Yes <ELISSA AGUIAR - Last Filed: 11/30/16 22:06> Physical Exam <DOLLY STOUT - Last Filed: 11/27/16 11:38> - Vital signs Interpretation: Normal - General General appearance: Appears well, Alert - HEENT Head: Normocephalic, Atraumatic Eyes: Normal Pupils: PERRL Neck: Supple - Respiratory Respiratory status: No respiratory distress Chest status: Nontender Breath sounds: Normal Chest palpation: Normal - Cardiovascular Rhythm: Regular Heart sounds: Normal auscultation Murmur: No - Abdominal Inspection: Normal Distension: No distension Bowel sounds: Normal Tenderness: Nontender. No: Tender Organomegaly: No organomegaly - Back Back: Normal, Nontender. No: Tender - Extremities General upper extremity: Normal inspection, Nontender, Normal color, Normal ROM , Normal temperature General lower extremity: Normal inspection, Nontender, Normal color, Normal ROM , Normal temperature, Normal weight bearing. No: Constantin's sign - Neurological Neuro grossly intact: Yes Cognition: Normal Orientation: AAOx4 [place] Coma Scale Eye Opening: Spontaneous Fidelia Coma Scale Verbal: Oriented [place] Coma Scale Motor: Obeys Commands Fidelia Coma Scale Total: 15 Speech: Normal Motor strength normal: LUE, RUE, LLE, RLE Sensory: Normal - Psychological Associated symptoms: Depressed, Flat affect - Skin Skin Temperature: Warm Skin Moisture: Dry Skin Color: Normal <ELISSA AGUIAR - Last Filed: 11/30/16 22:06> - Vital signs Vitals: Temp Pulse Resp BP Pulse Ox 98.9 F 85 18 127/84 H 99 11/26/16 19:41 11/26/16 19:41 11/26/16 19:41 11/26/16 19:41 11/26/16 19:41 - Notes Notes: on menses (ELISSA AGUIAR) - Skin Notes: superficial abrasion both volar forearms, left more than right (ELISSA AGUIAR) Course - Laboratory Result Diagrams: 11/26/16 20:00 11/26/16 20:00 <DOLLY STOUT - Last Filed: 11/27/16 11:38> - Laboratory Result Diagrams: 11/26/16 20:00 11/26/16 20:00 - EKG Interpretation by Tn EKG shows normal: Sinus rhythm Rate: Normal Rhythm: NSR <ELISSA AGUIAR - Last Filed: 11/30/16 22:06> - Vital Signs Vital signs: Temp Pulse Resp BP Pulse Ox 98.2 F 82 15 127/79 H 100 11/27/16 12:38 11/27/16 12:38 11/27/16 12:38 11/27/16 12:38 11/27/16 12:38 - Laboratory Laboratory results interpreted by me: 11/26/16 11/26/16 11/26/16 20:00 20:00 22:55 Hgb 11.8 L Hct 34.9 L MCV 76 L MCH 25.7 L RDW 17.5 H Chloride 108 H Glucose 111 H Urine Protein 30 H Urine Blood LARGE H Urine Nitrite POSITIVE H Salicylates < 1.0 L Acetaminophen < 10 L Discharge <DOLLY STOUT - Last Filed: 11/27/16 11:38> <ELISSA AGUIAR - Last Filed: 11/30/16 22:06> - Discharge Clinical Impression: suicide gesture Condition: Stable Disposition: PSYCH HOSP/UNIT
[2016-11-26] MEDS ORDERED: DIPH/PERTUSS(ACELL)/TETANUS VAC/PF 0.5 ML SYR (>=10YO) IM ONE (20:37)
[2016-11-27 00:04] LABS: AMORPHOUS SEDIMENT,URINE TRACE /HPF; APPEARANCE,URINE SLIGHTLY-CLOUDY; BILIRUBIN,URINE NEGATIVE (NEGATIVE); GLUCOSE, URINE NEGATIVE (NEGATIVE); KETONES,URINE NEGATIVE (NEGATIVE); LEUKOCYTE ESTERASE,URINE NEGATIVE (NEGATIVE); NITRITE,URINE POSITIVE (NEGATIVE); PROTEIN,URINE 30 mg/dL (NEGATIVE); URINE SPECIFIC GRAVITY 1.012; UROBILINOGEN,URINE NEGATIVE mg/dL (<2.0)
[2016-11-27 00:28] LABS: URINE BARBITURATES SCREEN NEGATIVE; URINE METHADONE SCREEN NEGATIVE; URINE OPIATES LOW NEGATIVE; URINE PHENCYCLIDINE SCREEN NEGATIVE
[2016-11-27] MEDS ORDERED: NITROFURANTOIN MONOHYD/M-CRYST 100 MG CAPSULE PO SCH (08:00)
--- NOTE | 2016-11-27 08:57 | EKG REPORT ---
SEVERITY:- OTHERWISE NORMAL ECG - SINUS RHYTHM BORDERLINE LEFT AXIS DEVIATION : Confirmed by: Kassi Royal MD 27-Nov-2016 08:57:31
--- NOTE | 2016-11-27 09:24 | ER Document Report ---
ED General - General Chief Complaint: Suicidal Ideation Stated Complaint: SUICIDAL IDEATION Time Seen by Provider: 11/26/16 20:35 Mode of Arrival: Ambulatory TRAVEL OUTSIDE OF THE [place]. IN LAST 30 DAYS: No - Related Data Allergies/Adverse Reactions: No Known Allergies Allergy (Verified 07/28/16 05:38) Home Medications: Current Home Medications No Home Medications 11/26/16 [History] Past Medical History - General Information source: Patient - Social History Smoking Status: Never Smoker Frequency of alcohol use: None Drug Abuse: None Family History: Reviewed & Not Pertinent, Other - sickle cell Patient has suicidal ideation: Yes Patient has homicidal ideation: No Renal/ Medical History: Denies: Hx Peritoneal Dialysis Psychiatric Medical History: Reports: Hx Depression Past Surgical History: Reports: Hx Section - Immunizations Immunizations up to date: Yes Hx Diphtheria, Pertussis, Tetanus Vaccination: Yes Physical Exam - Vital signs Vitals: Temp Pulse Resp BP Pulse Ox 98.9 F 85 18 127/84 H 99 11/26/16 19:41 11/26/16 19:41 11/26/16 19:41 11/26/16 19:41 11/26/16 19:41 Course - Re-evaluation Re-evalutation: 11/27/16 09:24 As the rounding emergency physician I examined this patient. I reviewed the patient's chart. The patient is currently resting comfortably and requires no acute medical intervention. Disposition per psychiatry. - Vital Signs Vital signs: Temp Pulse Resp BP Pulse Ox 97.7 F 82 18 127/84 H 99 11/27/16 07:40 11/27/16 07:40 11/27/16 07:40 11/27/16 07:40 11/27/16 07:40 - Laboratory Result Diagrams: 11/26/16 20:00 11/26/16 20:00 Laboratory results interpreted by me: 11/26/16 11/26/16 11/26/16 20:00 20:00 22:55 Hgb 11.8 L Hct 34.9 L MCV 76 L MCH 25.7 L RDW 17.5 H Chloride 108 H Glucose 111 H Urine Protein 30 H Urine Blood LARGE H Urine Nitrite POSITIVE H Salicylates < 1.0 L Acetaminophen < 10 L
[2016-11-27] MEDS ORDERED: CITALOPRAM HYDROBROMIDE 20 MG TABLET PO ONE (11:07)
[2016-11-27 12:39] VITALS: BP 127/79
== END 2016-11-27 12:45 ==
LOC: ER 19:39
DX: X78.9XXA Intentional self-harm by unspecified sharp object, initial encounter (principal); S50.811A Abrasion of right forearm, initial encounter; S50.812A Abrasion of left forearm, initial encounter; F32.9 Major depressive disorder, single episode, unspecified; T43.226A Underdosing of selective serotonin reuptake inhibitors, initial encounter; Z91.128 Patient's intentional underdosing of medication regimen for other reason; Z91.14 Patient's other noncompliance with medication regimen; F41.9 Anxiety disorder, unspecified; Z62.820 Parent-biological child conflict
CPT/HCPCS: 93005; 99285; 90471; 36415; 87086; 80307 ×4; 84703; 85025; 87088; 80053; 81001; 87186; 90715; 93010; J3490

== ENCOUNTER 2017-07-15 19:44 | Emergency (ER) | payer MEDICAID, OTHER ==
[2017-07-15 20:24] LABS: ABSOLUTE LYMPHOCYTES (AUTO) 1.9 10^3/uL (0.5-4.7); ABSOLUTE MONOCYTES (AUTO) 0.3 10^3/uL (0.1-1.4); ABSOLUTE NEUT (AUTO) 3.2 10^3/uL (1.7-8.2); BASOPHILS % (AUTO) 0.7 % (0-2); EOSINOPHILS % (AUTO) 0.7 % (0-6); HEMOGLOBIN 12.4 g/dL (12.0-15.5); LYMPHOCYTES % (AUTO) 34.9 % (13-45); MEAN CORPUSCULAR HEMOGLOBIN 26.3 pg (27.0-33.4); MEAN CORPUSCULAR HGB CONC 33.5 g/dL (32.0-36.0); MEAN CORPUSCULAR VOLUME 79 fl (80-97); MONOCYTES % (AUTO) 6.2 % (3-13); PLATELET COUNT 213 10^3/uL (150-450); RED CELL DISTRIBUTION WIDTH 16.6 % (11.5-14.0); SEGMENTED NEUTROPHILS % (AUTO) 57.5 % (42-78); TOTAL CELLS COUNTED % (AUTO) 100 %; WHITE BLOOD COUNT 5.5 10^3/uL (4.0-10.5)
--- NOTE | 2017-07-15 20:24 | ER Document Report ---
ED General - General Chief Complaint: Overdose Stated Complaint: POSSIBLE OVERDOSE Time Seen by Provider: 07/15/17 20:22 TRAVEL OUTSIDE OF THE [place]. IN LAST 30 DAYS: No - HPI Notes: In history is extremely limited, patient is tearful and unwilling to provide much information. 22-year-old female presents with stated suicide attempt. Apparently 30 minutes or so prior to EMS arrival, patient had ingested an undetermined amount of 150 mg clindamycin, 1 mg prazosin, 25 mg hydroxyzine, and 10 mg zolpidem. She was found by family, sleepy but arousable. Brought by EMS, they gave her 50 g of charcoal with sorbitol prior to arrival in the ED. She is somnolent but arousable. Tearful at times. Does not provide much information except that she wish to kill herself. - Related Data Allergies/Adverse Reactions: No Known Allergies Allergy (Verified 07/28/16 05:38) Past Medical History - Social History Smoking Status: Never Smoker Frequency of alcohol use: None Drug Abuse: None Family History: Reviewed & Not Pertinent, Other - sickle cell Patient has suicidal ideation: Yes Patient has homicidal ideation: Yes - Medical History Notes: Includes depression otherwise limited by noncompliance with history Renal/ Medical History: Denies: Hx Peritoneal Dialysis Psychiatric Medical History: Reports: Hx Depression Past Surgical History: Reports: Hx Section - Immunizations Immunizations up to date: Yes Hx Diphtheria, Pertussis, Tetanus Vaccination: Yes Review of Systems - Review of Systems Notes: ROS unable to be obtained secondary to patient condition and unwillingness to provide history Physical Exam - Vital signs Vitals: Resp Pulse Ox 19 100 07/15/17 20:00 07/15/17 20:00 - Notes Notes: General: Well developed . Moderate distress. HEENT: Normocephalic, atraumatic. Pupils equal round reactive to light. No JVD. Chest: No trauma. Respiratory: Good air exchange, normal excursion. Cardiac: Regular rhythm. No murmurs or gallops. Abdomen: Soft, benign. Nondistended. Nontender. Back: No asymmetry or gross abnormality. Motor: Grossly normal power and tone. Neurologic: Sleepy but alert, nonfocal, no clonus. No hyperreflexia. Vascular: Well perfused. Normal peripheral pulses. Skin: No petechiae or purpura. Course - Re-evaluation Re-evalutation: 07/15/17 20:23 22-year-old female was stated suicide attempt by overdose. Several medications could potentially compromise her airway and mental status. We will watch her carefully, proceed with basic metabolic or toxicologic workup, ECG, serial examination. 12 Lead ECG Analysis A 12 lead ECG is obtained and shows a sinus rhythm, normal QRS, normal QTC. There are nonspecific ST-T changes, no evidence of acute ischemic changes. No interval abnormalities. 07/15/17 23:19 Patient is watched with serial examinations. She has become much more alert, appropriate. Her labs reviewed, CBC unremarkable, chemistries are normal. Toxicologic workup is unremarkable. Twelve-lead ECG is obtained shows sinus rhythm, normal rate, normal QRS, normal QTC. No interval abnormalities. Patient is watched on the monitor for several hours with no sequelae of her ingestion. My estimation the patient's risk of suicidality is high, we will continue her under involuntary commitment she will be evaluated by the psychiatry team in the morning. - Vital Signs Vital signs: Temp Pulse Resp BP Pulse Ox 20 125/93 H 99 07/15/17 21:01 07/15/17 21:01 07/15/17 21:01 - Laboratory Result Diagrams: 07/15/17 20:02 07/15/17 20:02 Laboratory results interpreted by me: 07/15/17 07/15/17 20:02 20:02 MCV 79 L MCH 26.3 L RDW 16.6 H Salicylates < 1.0 L Acetaminophen < 10 L
[2017-07-15 20:31] LABS: ALANINE AMINOTRANSFERASE 27 U/L (9-52); ALKALINE PHOSPHATASE 72 U/L (38-126); ANION GAP 13 (5-19); ASPARTATE AMINO TRANSFERASE 20 U/L (14-36); BILIRUBIN,DIRECT 0.2 mg/dL (0.0-0.4); BILIRUBIN,TOTAL 0.5 mg/dL (0.2-1.3); BLOOD UREA NITROGEN 9 mg/dL (7-20); CALCIUM 9.6 mg/dL (8.4-10.2); CARBON DIOXIDE 23 mmol/L (22-30); CHLORIDE 105 mmol/L (98-107); GLUCOSE 83 mg/dL (75-110); POTASSIUM 3.9 mmol/L (3.6-5.0); SODIUM 140.9 mmol/L (137-145); TOTAL PROTEIN 7.2 g/dL (6.3-8.2)
[2017-07-15 20:32] LABS: ACETAMINOPHEN < 10 ug/mL (10-30); ALCOHOL < 10 mg/dL (NONE DETECTED); SALICYLATE < 1.0 mg/dL (2.0-20.0)
--- NOTE | 2017-07-16 07:21 | EKG REPORT ---
SEVERITY:- NORMAL ECG - SINUS RHYTHM : Confirmed by: Jensen Gomez MD 16-Jul-2017 07:20:23
[2017-07-16 08:49] LABS: APPEARANCE,URINE CLOUDY; BILIRUBIN,URINE NEGATIVE (NEGATIVE); COLOR,URINE YELLOW; GLUCOSE, URINE NEGATIVE (NEGATIVE); KETONES,URINE NEGATIVE (NEGATIVE); LEUKOCYTE ESTERASE,URINE NEGATIVE (NEGATIVE); NITRITE,URINE POSITIVE (NEGATIVE); PROTEIN,URINE NEGATIVE (NEGATIVE); URINE SPECIFIC GRAVITY 1.015; UROBILINOGEN,URINE NEGATIVE mg/dL (<2.0)
[2017-07-16 09:12] LABS: URINE AMPHETAMINES SCREEN NEGATIVE; URINE BARBITURATES SCREEN NEGATIVE; URINE BENZODIAZEPINES SCREEN NEGATIVE; URINE COCAINE SCREEN NEGATIVE; URINE MARIJUANA (THC) SCREEN NEGATIVE; URINE METHADONE SCREEN NEGATIVE; URINE PHENCYCLIDINE SCREEN NEGATIVE
--- NOTE | 2017-07-16 09:47 | ER Document Report ---
Doctor's Note Notes: 07/16/17 09:46 22-year-old female who presents yesterday with an intentional overdose. Patient has stated that she took an unknown quantity of 150 mg clindamycin, 1 mg prazosin, 25 mg hydroxyzine, and 10 mg zolpidem. Family found patient. Patient was given charcoal by EMS. Patient was drowsy but improved while being monitored in the emergency room. Labs and vital signs as recorded. Awaiting psychiatry/psychology recommendations. 07/16/17 18:20 Patient still sleeping calmly in no acute distress. Given the gesture less than 24 hours ago, patient will be held at least until the morning with reassessment.
[2017-07-16] MEDS: DIVALPROEX SODIUM 500 MG TAB.SR.24H PO SCH (14:10)
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
[2017-07-17] MEDS: DIVALPROEX SODIUM 500 MG TAB.SR.24H PO SCH (09:54)
--- NOTE | 2017-07-17 10:32 | ER Document Report ---
Doctor's Note Notes: 07/17/17 10:31 Rounds: Chart reviewed. Patient sleeping and did not awaken her. All labs have been normal. All vital signs within normal. Patient has been up and awake and active. Being evaluated for suicidal ideation and depression and overdose of multiple medications including clindamycin and Vistaril. Patient appears to be medically stable for transfer or discharge. Fausto Cobos MD
--- NOTE | 2017-07-17 11:24 | PSYCHOLOGICAL NOTE ---
Psych Note - Psych Note Psych Note: Reason for consult: intentional overdose consent permissions: Zhao, significant other, Vanessa, mother, Sherri grandmother, 22-year-old female presents with stated suicide attempt. Apparently 30 minutes or so prior to EMS arrival, patient had ingested an undetermined amount of 150 mg clindamycin, 1 mg prazosin, 25 mg hydroxyzine, and 10 mg zolpidem. She was found by family, sleepy but arousal. Brought by EMS, they gave her 50 g of charcoal with sorbitol prior to arrival in the ED. She is somnolent but arousal. Tearful at times. Does not provide much information except that she wish to kill herself. Clinician conducted checking with patient Patient disclosed that she is glad that she was able to come to [facility] ED and did not do serious harm to herself. She denies current suicidal ideation. She discloses that both she and her mother are the primary caregivers of her child during the day (patient's significant other and biological father works evenings ). She disclosed that she is unsure, but thinks her insurance is not working. She disclosed that she would like to have information on a provider that she can go to both with medicaid/medicare and as self pay. Mood is euthymic with congruent affect. Patient denies suicidal and homicidal ideation. Clinician discuss case the assigned continuous pillowcase cutter of child protective service. 296.40 (F31.9) bipolar I disorder; unspecified per history provided by patient 309.81 (F43.10) Posttrumatic Stress Disorder per history provided by patient Impression/Plan: Patient is recommended for rescind of IVC and is considered cleared from acute psychiatric services. Patient denies current suicidal ideation. Patient reports doing well until approximately losing her insurance and having a lapse in therapeutic intervention and medication management proximally 3 months ago. Patient has strong support system to include her mother, grandmother and significant other. Patient is recommended to receive trauma focused therapy to learn her triggers and better coping skills. Dr. Cyr was consulted and the care management this patient; attending physician is agreement with recommendations and disposition.
[2017-07-17 15:03] VITALS: BP 123/81
== END 2017-07-17 15:25 | disposition home or self-care (01) ==
LOC: ER 19:44
DX: T36.8X2A Poisoning by other systemic antibiotics, intentional self-harm, initial encounter (principal); T44.6X2A Poisoning by alpha-adrenoreceptor antagonists, intentional self-harm, initial encounter; T43.592A Poisoning by other antipsychotics and neuroleptics, intentional self-harm, initial encounter; T42.6X2A Poisoning by other antiepileptic and sedative-hypnotic drugs, intentional self-harm, initial encounter; F31.9 Bipolar disorder, unspecified; F43.10 Post-traumatic stress disorder, unspecified; Y92.009 Unspecified place in unspecified non-institutional (private) residence as the place of occurrence of the external cause
CPT/HCPCS: 93005; 99285; 36415; 80307 ×4; 85025; 81025; 80053; 81001; 93010; J3490 ×2

== ENCOUNTER 2017-08-28 23:57 | Emergency (ER) | payer MEDICAID ==
[2017-08-29 00:20] LABS: ABSOLUTE LYMPHOCYTES (AUTO) 2.2 10^3/uL (0.5-4.7); ABSOLUTE MONOCYTES (AUTO) 0.6 10^3/uL (0.1-1.4); ABSOLUTE NEUT (AUTO) 3.4 10^3/uL (1.7-8.2); BASOPHILS % (AUTO) 0.8 % (0-2); EOSINOPHILS % (AUTO) 0.7 % (0-6); HEMATOCRIT 35.2 % (36.0-47.0); HEMOGLOBIN 11.9 g/dL (12.0-15.5); LYMPHOCYTES % (AUTO) 34.3 % (13-45); MEAN CORPUSCULAR HEMOGLOBIN 27.6 pg (27.0-33.4); MEAN CORPUSCULAR HGB CONC 33.7 g/dL (32.0-36.0); MEAN CORPUSCULAR VOLUME 82 fl (80-97); MONOCYTES % (AUTO) 9.5 % (3-13); PLATELET COUNT 208 10^3/uL (150-450); RED CELL DISTRIBUTION WIDTH 15.9 % (11.5-14.0); SEGMENTED NEUTROPHILS % (AUTO) 54.7 % (42-78); TOTAL CELLS COUNTED % (AUTO) 100 %; WHITE BLOOD COUNT 6.3 10^3/uL (4.0-10.5)
[2017-08-29 00:35] LABS: ALANINE AMINOTRANSFERASE 23 U/L (9-52); ALBUMIN 3.7 g/dL (3.5-5.0); ALKALINE PHOSPHATASE 82 U/L (38-126); ANION GAP 11 (5-19); ASPARTATE AMINO TRANSFERASE 17 U/L (14-36); BILIRUBIN,DIRECT 0.2 mg/dL (0.0-0.4); BILIRUBIN,TOTAL 0.3 mg/dL (0.2-1.3); BLOOD UREA NITROGEN 12 mg/dL (7-20); CARBON DIOXIDE 21 mmol/L (22-30); CHLORIDE 108 mmol/L (98-107); GLUCOSE 100 mg/dL (75-110); POTASSIUM 4.1 mmol/L (3.6-5.0); SODIUM 139.6 mmol/L (137-145); TOTAL PROTEIN 6.9 g/dL (6.3-8.2)
[2017-08-29 00:37] LABS: ACETAMINOPHEN < 10 ug/mL (10-30); ALCOHOL < 10 mg/dL (NONE DETECTED); SALICYLATE < 1.0 mg/dL (2.0-20.0)
[2017-08-29 03:51] LABS: APPEARANCE,URINE CLEAR; BILIRUBIN,URINE NEGATIVE (NEGATIVE); COLOR,URINE YELLOW; GLUCOSE, URINE NEGATIVE (NEGATIVE); KETONES,URINE NEGATIVE (NEGATIVE); LEUKOCYTE ESTERASE,URINE NEGATIVE (NEGATIVE); NITRITE,URINE NEGATIVE (NEGATIVE); PROTEIN,URINE NEGATIVE (NEGATIVE); URINE SPECIFIC GRAVITY 1.013; UROBILINOGEN,URINE NEGATIVE mg/dL (<2.0)
[2017-08-29 04:06] LABS: URINE AMPHETAMINES SCREEN NEGATIVE; URINE BARBITURATES SCREEN NEGATIVE; URINE BENZODIAZEPINES SCREEN NEGATIVE; URINE COCAINE SCREEN NEGATIVE; URINE MARIJUANA (THC) SCREEN NEGATIVE; URINE METHADONE SCREEN NEGATIVE; URINE PHENCYCLIDINE SCREEN NEGATIVE
--- NOTE | 2017-08-29 07:16 | EKG REPORT ---
SEVERITY:- NORMAL ECG - SINUS RHYTHM : Confirmed by: Jensen Gomez MD 29-Aug-2017 07:16:09
--- NOTE | 2017-08-29 07:30 | ER Document Report ---
ED General - General Chief Complaint: Suicidal Ideation Stated Complaint: POSSIBLE OVERDOSE Time Seen by Provider: 08/29/17 00:04 Mode of Arrival: Medic Information source: Patient Notes: Patient is a 22-year-old female who presents via EMS after an alleged head overdose. Patient reports that she took approximately 14 ambien as well as a handful of an unknown type of antianxiety medication. Patient reports that she has been fighting with her significant other and this was an attempt to harm herself. Patient denies any homicidal ideations. Patient does have a history of anxiety and depression. Patient was given activated charcoal via EMS. Patient is alert and oriented. TRAVEL OUTSIDE OF THE [place] IN LAST 30 DAYS: No - Related Data Allergies/Adverse Reactions: No Known Allergies Allergy (Verified 07/28/16 05:38) Past Medical History - General Information source: Patient - Social History Smoking Status: Current Some Day Smoker Chew tobacco use (# tins/day): No Frequency of alcohol use: None Drug Abuse: None Family History: Reviewed & Not Pertinent, Other - sickle cell Patient has suicidal ideation: Yes Patient has homicidal ideation: No - Medical History Medical History: Negative Renal/ Medical History: Denies: Hx Peritoneal Dialysis Psychiatric Medical History: Reports: Hx Depression Past Surgical History: Reports: Hx Section - Immunizations Immunizations up to date: Yes Hx Diphtheria, Pertussis, Tetanus Vaccination: Yes Review of Systems - Review of Systems Constitutional: No symptoms reported EENT: No symptoms reported Cardiovascular: No symptoms reported Respiratory: No symptoms reported Gastrointestinal: No symptoms reported Genitourinary: No symptoms reported Female Genitourinary: No symptoms reported Musculoskeletal: No symptoms reported Skin: No symptoms reported Hematologic/Lymphatic: No symptoms reported Neurological/Psychological: No symptoms reported Physical Exam - Vital signs Vitals: Temp Resp Pulse Ox 98.9 F 19 99 08/29/17 00:06 08/29/17 00:06 08/29/17 00:06 - Notes Notes: PHYSICAL EXAMINATION: GENERAL: Well-appearing, well-nourished and in no acute distress. HEAD: Atraumatic, normocephalic. EYES: Pupils equal round and reactive to light, extraocular movements intact, conjunctiva are normal. ENT: Nares patent, oropharynx clear without exudates. Moist mucous membranes. NECK: Normal range of motion, supple without lymphadenopathy LUNGS: Breath sounds clear to auscultation bilaterally and equal. No wheezes rales or rhonchi. HEART: Regular rate and rhythm without murmurs ABDOMEN: Soft, nontender, nondistended abdomen. No guarding, no rebound. No masses appreciated. Female : deferred Musculoskeletal: Normal range of motion, no pitting or edema. No cyanosis. NEUROLOGICAL: Cranial nerves grossly intact. Normal speech. Normal sensory, motor exams PSYCH: Normal mood, normal affect. SKIN: Warm, Dry, normal turgor, no rashes or lesions noted. Course - Re-evaluation Re-evalutation: Patient is drowsy but oriented 4. Patient presents after an intentional overdose on Ambien as well as an antianxiety medication. Called and spoke with poison control who recommended a 6 hour observation as well as IV fluids and cardiac monitoring. CBC, comprehensive metabolic panel and tox screens are all unremarkable. Salicylate level is negative. Acetaminophen level is negative. Patient remains resting quietly, sinus rhythm on a satellite project site monitor, vital signs are stable. Patient has been monitored for greater than 6 hours on the satellite project site monitor. Patient is now alert, oriented and ambulates with a steady gait. Patient is calm and cooperative and agrees to stay to speak with the hide and skin processing worker. Patient has maintained a sinus rhythm on the satellite project site monitor, no ST elevations or depressions. Patient is considered medically cleared at this point and will be moved to [facility] for pending psych evaluation. - Vital Signs Vital signs: Temp Pulse Resp BP Pulse Ox 98.9 F 17 106/67 99 08/29/17 00:06 08/29/17 04:02 08/29/17 04:02 08/29/17 04:02 - Laboratory Result Diagrams: 08/29/17 00:06 08/29/17 00:06 Laboratory results interpreted by me: 08/29/17 08/29/17 00:06 00:06 Hgb 11.9 L Hct 35.2 L RDW 15.9 H Chloride 108 H Carbon Dioxide 21 L Salicylates < 1.0 L Acetaminophen < 10 L
--- NOTE | 2017-08-29 12:54 | ER Document Report ---
Doctor's Note Notes: 08/29/17 12:53 Rounds: Chart reviewed and patient interviewed. Patient being evaluated for overdose as well as suicidal ideation and depression. Vital signs are all normal. Lab studies were all essentially normal. Patient appears to be well this morning without sequelae from her overdose. Patient appears to be medically stable for transfer or discharge. Fausto Cobos MD
[2017-08-29 13:47] VITALS: BP 116/76
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
== END 2017-08-29 14:00 | disposition home or self-care (01) ==
LOC: ER 23:57
DX: R45.851 Suicidal ideations (principal); T42.6X2A Poisoning by other antiepileptic and sedative-hypnotic drugs, intentional self-harm, initial encounter; Y92.9 Unspecified place or not applicable; F41.9 Anxiety disorder, unspecified; F32.9 Major depressive disorder, single episode, unspecified; F17.200 Nicotine dependence, unspecified, uncomplicated
CPT/HCPCS: 36415; 80053; 80307; 81001; 84703; 85025; 93005; 93010; 99285

== ENCOUNTER 2018-06-17 19:46 | Emergency (ER) | payer SELFPAY ==
--- NOTE | 2018-06-17 23:42 | ER Document Report ---
ED Medical Screen (RME) - General Chief Complaint: Lower Abdominal Pain Stated Complaint: PAIN IN LOWER ABDOMEN AND RIGHT SIDE Time Seen by Provider: 06/17/18 23:40 Notes: 22-year-old female, chief complaint of abdominal pain and swelling. Symptoms going on for 2 days. Pain is mainly on the right side and toward the right flank. Reports nausea but denies vomiting. No bowel movement for the past 2 days which is abnormal for patient. Denies fever chills, dysuria, vaginal bleeding or discharge. History of but no other abdominal surgeries. TRAVEL OUTSIDE OF THE [place] IN LAST 30 DAYS: No - Related Data Allergies/Adverse Reactions: No Known Allergies Allergy (Verified 06/17/18 19:53) Past Medical History Renal/ Medical History: Denies: Hx Peritoneal Dialysis Psychiatric Medical History: Reports: Hx Depression Past Surgical History: Reports: Hx Section - Immunizations Immunizations up to date: Yes Hx Diphtheria, Pertussis, Tetanus Vaccination: Yes Physical Exam - Vital signs Vitals: Temp Pulse Resp BP Pulse Ox 99.0 F 109 H 20 120/75 98 06/17/18 19:51 06/17/18 19:51 06/17/18 19:51 06/17/18 19:51 06/17/18 19:51 - General General appearance: Appears well In distress: None - Abdominal Tenderness: Tender - Appears mildly distended with mild generalized tenderness but no specific guarding Course - Re-evaluation Re-evalutation: I have greeted and performed a rapid initial assessment of this patient. A comprehensive ED assessment and evaluation of the patient, analysis of test results and completion of the medical decision making process will be conducted by additional ED providers. - Vital Signs Vital signs: Temp Pulse Resp BP Pulse Ox 99.0 F 109 H 20 120/75 98 06/17/18 19:51 06/17/18 19:51 06/17/18 19:51 06/17/18 19:51 06/17/18 19:51
[2018-06-18 00:15] LABS: HEMATOCRIT 38.5 % (36.0-47.0); HEMOGLOBIN 12.8 g/dL (12.0-15.5); MEAN CORPUSCULAR HEMOGLOBIN 27.2 pg (27.0-33.4); MEAN CORPUSCULAR HGB CONC 33.4 g/dL (32.0-36.0); MEAN CORPUSCULAR VOLUME 82 fl (80-97); RED BLOOD COUNT 4.72 10^6/uL (3.72-5.28)
[2018-06-18 00:16] LABS: ABSOLUTE LYMPHOCYTES (AUTO) 1.6 10^3/uL (0.5-4.7); ABSOLUTE MONOCYTES (AUTO) 0.4 10^3/uL (0.1-1.4); ABSOLUTE NEUT (AUTO) 5.9 10^3/uL (1.7-8.2); BASOPHILS % (AUTO) 0.3 % (0-2); EOSINOPHILS % (AUTO) 0.4 % (0-6); LYMPHOCYTES % (AUTO) 20.3 % (13-45); MONOCYTES % (AUTO) 5.1 % (3-13); PLATELET COUNT 235 10^3/uL (150-450); RED CELL DISTRIBUTION WIDTH 14.9 % (11.5-14.0); SEGMENTED NEUTROPHILS % (AUTO) 73.9 % (42-78); TOTAL CELLS COUNTED % (AUTO) 100 %
[2018-06-18 00:27] LABS: ALANINE AMINOTRANSFERASE 24 U/L (9-52); ALBUMIN 3.9 g/dL (3.5-5.0); ALKALINE PHOSPHATASE 79 U/L (38-126); ANION GAP 8 (5-19); ASPARTATE AMINO TRANSFERASE 17 U/L (14-36); BILIRUBIN,DIRECT 0.2 mg/dL (0.0-0.4); BILIRUBIN,TOTAL 0.4 mg/dL (0.2-1.3); BLOOD UREA NITROGEN 11 mg/dL (7-20); CALCIUM 9.4 mg/dL (8.4-10.2); CARBON DIOXIDE 24 mmol/L (22-30); CHLORIDE 106 mmol/L (98-107); GLUCOSE 108 mg/dL (75-110); POTASSIUM 3.8 mmol/L (3.6-5.0); TOTAL PROTEIN 7.3 g/dL (6.3-8.2)
[2018-06-18 00:46] LABS: APPEARANCE,URINE CLOUDY; BILIRUBIN,URINE NEGATIVE (NEGATIVE); COLOR,URINE YELLOW; GLUCOSE, URINE NEGATIVE (NEGATIVE); KETONES,URINE NEGATIVE (NEGATIVE); LEUKOCYTE ESTERASE,URINE LARGE (NEGATIVE); NITRITE,URINE NEGATIVE (NEGATIVE); PROTEIN,URINE 30 mg/dL (NEGATIVE); URINE SPECIFIC GRAVITY 1.009; UROBILINOGEN,URINE NEGATIVE mg/dL (<2.0)
--- NOTE | 2018-06-18 01:38 | RADIOLOGY REPORT (SQ) ---
EXAM DESCRIPTION: XR ABDOMEN 2 VIEWS SUPINE ERECT COMPLETED DATE/TME: 06/17/2018 23:41 CLINICAL HISTORY: 22 years, Female, abd pain/swelling COMPARISON: None. NUMBER OF VIEWS: Two TECHNIQUE: Supine and upright images of the abdomen LIMITATIONS: None. FINDINGS: There is no intraperitoneal free air. No dilated loops of small bowel are identified. There are no air-fluid levels. There are no abnormal calcifications. The bones are unremarkable. IMPRESSION: Nonobstructing bowel gas pattern copyright 2010 [email or web address]- All Rights Reserved
[2018-06-18] MEDS ORDERED: CEPHALEXIN 500 MG CAPSULE PO ONE (01:59)
[2018-06-18] MEDS ORDERED: KETOROLAC TROMETHAMINE 60 MG/2 ML SDV IM ONE (02:00)
--- NOTE | 2018-06-18 02:01 | ER Document Report ---
ED General - General Chief Complaint: Lower Abdominal Pain Stated Complaint: PAIN IN LOWER ABDOMEN AND RIGHT SIDE Time Seen by Provider: 06/17/18 23:40 Notes: Patient is a 22-year-old female without chronic medical problems, prior surgical history of who presents with several days of progressively worsening lower abdominal discomfort now moving up into her right flank. States her symptoms are gradually, have gotten progressively worse. Pain is described as a moderate to severe throbbing, aching, constant pain. Nothing improves the pain or worsens the pain. No history of similar symptoms in the past. States that she is having urinary frequency and some urine hesitancy. Denies previous history of similar symptoms in the past. Has not seen her primary care physician regarding today's concerns. No fever or constitutional symptoms. Has been somewhat nauseated but no vomiting. TRAVEL OUTSIDE OF THE [place] IN LAST 30 DAYS: No - Related Data Allergies/Adverse Reactions: No Known Allergies Allergy (Verified 06/17/18 19:53) Past Medical History - General Information source: Patient - Social History Smoking Status: Never Smoker Frequency of alcohol use: Rare Drug Abuse: None Lives with: Friend Family History: Reviewed & Not Pertinent, Other - sickle cell Patient has suicidal ideation: No Patient has homicidal ideation: No Renal/ Medical History: Denies: Hx Peritoneal Dialysis Psychiatric Medical History: Reports: Hx Depression - anxiety, PTSD Past Surgical History: Reports: Hx Section - x1 - Immunizations Immunizations up to date: Yes Hx Diphtheria, Pertussis, Tetanus Vaccination: Yes Review of Systems - Review of Systems Notes: Constitutional: Negative for fever. HENT: Negative for sore throat. Eyes: Negative for visual changes. Cardiovascular: Negative for chest pain. Respiratory: Negative for shortness of breath. Gastrointestinal: Positive for lower abdominal pain, right flank pain, nausea Genitourinary: Positive for dysuria. Musculoskeletal: Negative for back pain. Skin: Negative for rash. Neurological: Negative for headaches, weakness or numbness. 10 point ROS negative except as marked above and in HPI. Physical Exam - Vital signs Vitals: Temp Pulse Resp BP Pulse Ox 99.0 F 109 H 20 120/75 98 06/17/18 19:51 06/17/18 19:51 06/17/18 19:51 06/17/18 19:51 06/17/18 19:51 Interpretation: Tachycardic Notes: PHYSICAL EXAMINATION: GENERAL: Well-appearing, well-nourished and in no acute distress. HEAD: Atraumatic, normocephalic. EYES: Pupils equal round and reactive to light, extraocular movements intact, sclera anicteric, conjunctiva are normal. ENT: nares patent, oropharynx clear without exudates. Moist mucous membranes. NECK: Normal range of motion, supple without lymphadenopathy LUNGS: Breath sounds clear to auscultation bilaterally and equal. No wheezes rales or rhonchi. HEART: Regular rate and rhythm without murmurs ABDOMEN: Soft, nontender, normoactive bowel sounds. No guarding, no rebound. No masses appreciated. Mild right CVA tenderness on palpation. EXTREMITIES: Normal range of motion, no pitting or edema. No cyanosis. NEUROLOGICAL: No focal neurological deficits. Moves all extremities spontaneously and on command. PSYCH: Normal mood, normal affect. SKIN: Warm, Dry, normal turgor, no rashes or lesions noted. Course - Re-evaluation Re-evalutation: 06/18/18 01:59 Presentation is most consistent with acute pyelonephritis. Laboratories do demonstrate a large amount of white blood cells in the urine as well as bacteria. No fever or constitutional symptoms. CVA tenderness is present on exam. The remainder laboratories are relatively unremarkable without evidence of renal dysfunction. I do not suspect an acute appendicitis, biliary pathology, pancreatitis, intra-abdominal abscess, or tubo-ovarian abscess based on history and examination. Patient has been given the first dose of oral anti biotics here in the emergency department. Patient is able to tolerate oral intake without difficulty. Will be discharged home on 7 day course of cephalexin. A urine culture has been sent. At this time will discharge with return precautions and follow-up recommendations. Verbal discharge instructions given a the bedside and opportunity for questions given. Medication warnings reviewed. Patient is in agreement with this plan and has verbalized understanding of return precautions and the need for primary care follow-up in the next 24-72 hours. - Vital Signs Vital signs: Temp Pulse Resp BP Pulse Ox 98.4 F 89 16 139/84 H 98 06/18/18 02:19 06/18/18 02:19 06/18/18 02:19 06/18/18 02:19 06/18/18 02:19 - Laboratory Result Diagrams: 06/17/18 23:52 06/17/18 23:52 Laboratory results interpreted by me: 06/17/18 06/17/18 23:52 23:58 RDW 14.9 H Urine Protein 30 H Urine Blood MODERATE H Ur Leukocyte Esterase LARGE H - Diagnostic Test Radiology reviewed: Reports reviewed Discharge - Discharge Clinical Impression: Right flank pain, Pyelonephritis Condition: Good Disposition: HOME, SELF-CARE Additional Instructions: You have been diagnosed with a condition called pyelonephritis which is an infection involving your kidneys and bladder. You have been given a dose of antibiotics here in the emergency department to help begin to treat this infection. Your also being sent home on antibiotics. Please start taking these later on today when you fill the prescription. Complete the course even if you feel better. Please return if you have persistent vomiting, pass out, have worsening pain, become unable to tolerate fluids, or have any other symptoms that are concerning to you. Please follow-up with your primary care physician in the next 24-48 hours. Prescriptions: Cephalexin Monohydrate [Keflex 500 mg Capsule] 500 mg PO Q6H 7 Days capsule
[2018-06-18 02:20] VITALS: BP 139/84
== END 2018-06-18 02:19 | disposition home or self-care (01) ==
LOC: ER 19:46
DX: N12 Tubulo-interstitial nephritis, not specified as acute or chronic (principal); R10.30 Lower abdominal pain, unspecified; R11.0 Nausea; R00.0 Tachycardia, unspecified; Z98.891 History of uterine scar from previous surgery
CPT/HCPCS: 99284; 96372; 36415; 87086; 85025; 81025; 87088; 80053; 81001; 87186; 74019; J1885

== ENCOUNTER 2019-01-19 16:56 | Emergency (ER) | payer SELFPAY ==
[2019-01-19 17:07] VITALS: BP 109/76
[2019-01-19] MEDS ORDERED: DEXAMETHASONE 4 MG TABLET PO ONE (17:14)
[2019-01-19] MEDS ORDERED: DIPHENHYDRAMINE HCL 50 MG CAPSULE PO ONE (17:14)
[2019-01-19] MEDS ORDERED: FAMOTIDINE 20 MG TABLET PO ONE (17:14)
--- NOTE | 2019-01-19 17:15 | ER Document Report ---
HPI - HPI Patient complains to provider of: spider bite Time Seen by Provider: 01/19/19 17:14 Onset: Just prior to arrival Onset/Duration: Sudden Quality of pain: Achy Pain Level: 1 Context: Patient reports spider bite to the left wrist that occurred 40 minutes prior to arrival. Patient states that insect was orange in color. Patient complains of burning pain and numbness to the wrist area. Patient denies any difficulty breathing or difficulty swallowing. Patient denies any previous allergic reactions to insect bites or stings. Associated Symptoms: Other - Insect bite to left wrist. denies: Chest pain, Nonproductive cough, Productive cough, Headache, Nausea, Vomiting Exacerbated by: Denies Relieved by: Denies Similar symptoms previously: No Recently seen / treated by doctor: No - ROS ROS below otherwise negative: Yes Systems Reviewed and Negative: Yes All other systems reviewed and negative - CONSTITUTIONAL Constitutional: DENIES: Fever - NEURO Neurology: DENIES: Headache, Weakness - CARDIOVASCULAR Cardiovascular: DENIES: Chest pain - RESPIRATORY Respiratory: DENIES: Trouble Breathing - GASTROINTESTINAL Gastrointestinal: DENIES: Nausea, Patient vomiting - REPRODUCTIVE Reproductive: DENIES: : - MUSCULOSKELETAL Musculoskeletal: REPORTS: Extremity pain - DERM Skin Color: Normal Notes: Insect bite Past Medical History - General Information source: Patient - Social History Smoking Status: Never Smoker Chew tobacco use (# tins/day): No Frequency of alcohol use: None Drug Abuse: None Occupation: None Lives with: Family Family History: Reviewed & Not Pertinent, Other - sickle cell Patient has suicidal ideation: No Patient has homicidal ideation: No - Medical History Medical History: Other - Anemia Renal/ Medical History: Denies: Hx Peritoneal Dialysis Psychiatric Medical History: Reports: Hx Depression - anxiety, PTSD Past Surgical History: Reports: Hx Section - x1 - Immunizations Immunizations up to date: Yes Hx Diphtheria, Pertussis, Tetanus Vaccination: Yes Vertical Provider Document - CONSTITUTIONAL Agree With Documented VS: Yes Exam Limitations: No Limitations General Appearance: WD/WN, No Apparent Distress - INFECTION CONTROL TRAVEL OUTSIDE OF THE [place] IN LAST 30 DAYS: No - HEENT HEENT: Atraumatic, Normocephalic Notes: No angioedema, no potential airway compromise - NECK Neck: Normal Inspection, Supple - RESPIRATORY Respiratory: Breath Sounds Normal, No Respiratory Distress - CARDIOVASCULAR Cardiovascular: Regular Rate, Regular Rhythm Pulses: Normal: Radial - MUSCULOSKELETAL/EXTREMETIES Musculoskeletal/Extremeties: MAEW, No Edema - NEURO Level of Consciousness: Awake, Alert, Appropriate Motor/Sensory: No Motor Deficit - DERM Integumentary: Warm, Dry Notes: Patient with erythematous annular area to the left wrist with central punctate lesion consistent with a history of insect bite Course - Re-evaluation Re-evalutation: 01/19/19 17:17 Patient with insect bite to left forearm, no extensive surrounding erythema, no concern for cellulitis or lymphangitis. No concern for anaphylaxis. - Vital Signs Vital signs: Temp Pulse Resp BP Pulse Ox 98.0 F 75 16 109/76 99 01/19/19 17:06 01/19/19 17:06 01/19/19 17:06 01/19/19 17:06 01/19/19 17:06 Discharge - Discharge Clinical Impression: Insect bite Qualifiers: Encounter type: initial encounter Site of insect bite: wrist Laterality: left Qualified Code(s): S60.862A - Insect bite (nonvenomous) of left wrist, initial encounter Condition: Stable Disposition: HOME, SELF-CARE Instructions: Use of Diphenhydramine, Insect Bites ([facility]), Topical Steroid Cream or Ointment ([facility]) Additional Instructions: Return immediately for any new or worsening symptoms Followup with your primary care provider, call tomorrow to make a followup appointment Prescriptions: Triamcinolone Acetonide [Aristocort 0.1% Cream] 1 applic TP TID #60 gm Referrals: [facility] [Provider Group] - Follow up as needed
== END 2019-01-19 17:26 | disposition home or self-care (01) ==
LOC: ER 16:56
DX: S60.862A Insect bite (nonvenomous) of left wrist, initial encounter (principal); W57.XXXA Bitten or stung by nonvenomous insect and other nonvenomous arthropods, initial encounter
CPT/HCPCS: 99281; J8540